=== PATIENT | female | born 1935 | race Caucasian/White ===

== ENCOUNTER 2018-08-22 15:39 | Observation (INO) | payer MEDICARE, BC ==
[2018-08-22] MEDS ORDERED: Sodium Chloride 0.9% 10 ML Syringe FLUSH PRN (15:41)
--- NOTE | 2018-08-22 15:42 | EDM.PDOC ---
ED HPI GENERAL MEDICAL PROBLEM - General Chief Complaint: Chest Pain Stated Complaint: SORE THROAT, RUNNY NOSE, HEADACHE, CHEST PAIN Time Seen by Provider: 08/22/18 15:41 Source of Information: Reports: Patient, Family History Limitations: Reports: No Limitations - History of Present Illness INITIAL COMMENTS - FREE TEXT/NARRATIVE: Sharmila is an 82 year old female who presents to the ED with c/o chest pain, headache, and elevated BP. Was initially in clinic and noted BP to be very elevated with patient in obvious distress from headache so was sent to ED. She reports that starting yesterday she developed a "bad headache" and chest pain. Rates headache 10/10 and chest pain 8/10. She denies any shortness of breath. Does report she feels dizzy. Reports she just hurts all over. Has not had much of an appetite the last few days. Just overall, doesn't feel well she reports. She reports she also has a sore mouth. She has been doctoring for a number of years for these mouth sores. Recently saw ENT. Patient does have dementia. Is oriented to person and place. Disoriented to time. No focal neurologic deficit. Onset Date: 08/21/18 Duration: Getting Worse Location: Reports: Head, Chest, Other (Mouth) Quality: Reports: Ache Severity: Severe Improves with: Reports: None Worsens with: Reports: None Associated Symptoms: Reports: Confusion, Chest Pain, Headaches, Loss of Appetite , Malaise. Denies: cough w sputum, Diaphoresis, Fever/Chills, Nausea/Vomiting, Rash, Seizure, Shortness of Breath, Syncope, Weakness HEADACHE Pain Score (Numeric/FACES): 6 CHEST Pain Score (Numeric/FACES): 6 Generalized Pain Score (Numeric/FACES): 8 - Related Data Allergies Allergy/AdvReac Type Severity Reaction Status Date / Time aspirin Allergy Mild Stomach Verified 08/22/18 16:28 Upset celecoxib [From Celebrex] Allergy Cannot Verified 08/22/18 16:28 Remember egg Allergy Stomach Verified 08/22/18 16:28 Upset egg Allergy Stomach Uncoded 08/22/18 16:28 Upset Home Meds: Home Meds LORazepam [Ativan] 0.5 mg PO BEDTIME PRN 05/01/13 [History] Multivitamin [Multivitamins] 1 each PO DAILY 05/01/13 [History] busPIRone HCl [Buspirone HCl] 15 mg PO BID 05/01/13 [History] cycloSPORINE [Restasis] 1 drop EYEBOTH BID 05/01/13 [History] Bimatoprost [Lumigan 0.01% Ophth Soln] 1 drop EYEBOTH BEDTIME 09/17/13 [History] Cyanocobalamin (Vitamin B12) [Vitamin B12] 1 ml IM Q1M 11/10/14 [History] Hydrocortisone 10 mg PO DAILY 11/18/15 [History] Potassium Chloride [Klor-Con 10] 20 meq PO BIDMEALS tab.er 11/20/15 [Rx] Brinzolamide [Azopt 1% Ophth Susp] 1 drop EYEBOTH BID 08/22/18 [History] Calcium Carbonate/Vitamin D3 [Calcium 500-Vit D3 600 Tablet] 1 tab PO DAILY [History] Fexofenadine HCl [Allergy Relief] 180 mg PO DAILY PRN 08/22/18 [History] Gabapentin [Neurontin] 100 mg PO TID 08/22/18 [History] Gabapentin [Neurontin] 300 mg PO TID 08/22/18 [History] Hydrocortisone [Cortef] 5 mg PO BEDTIME 08/22/18 [History] Ibuprofen [Advil] 400 mg PO Q6HR PRN 08/22/18 [History] oxyCODONE HCl/Acetaminophen [Oxycodone-Acetaminophen 5-325] 1 tab PO Q4HR PRN [History] C-Benadryl/Maalox/Vis Lido 5 ml PO QID PRN 08/23/18 [History] Past Medical History HEENT History: Reports: Cataract, Other (See Below) Other HEENT History: Had left eye surgery 1-2 months ago. Respiratory History: Reports: Asthma - Past Surgical History GI Surgical History: Reports: Appendectomy, Cholecystectomy, Other (See Below) Female Surgical History: Reports: Hysterectomy Musculoskeletal Surgical History: Reports: Other (See Below) Social & Family History - Family History Cardiac: Reports: ND Respiratory: Reports: Asthma Musculoskeletal: Reports: Osteoarthritis Oncologic: Reports: Ovarian ED ROS GENERAL - Review of Systems Review Of Systems: See Below Constitutional: Reports: Malaise, Weakness, Fatigue, Decreased Appetite. Denies : Fever, Chills HEENT: Reports: Rhinitis, Throat Pain. Denies: Throat Swelling Respiratory: Denies: Shortness of Breath, Wheezing, Pleuritic Chest Pain, Cough , Sputum, Hemoptysis Cardiovascular: Reports: Chest Pain, Blood Pressure Problem, Lightheadedness. Denies: Dyspnea on Exertion, Edema, Orthopnea, Palpitations, Syncope Endocrine: Reports: Fatigue GI/Abdominal: Reports: Decreased Appetite. Denies: Abdominal Pain, Black Stool , Bloody Stool, Constipation, Diarrhea, Nausea, Vomiting : Reports: Frequency, Urgency. Denies: Dysuria, Incontinence Musculoskeletal: Reports: Back Pain Neurological: Reports: Confusion, Dizziness, Headache, Weakness. Denies: Numbness, Seizure, Syncope, Tingling, Tremors Psychiatric: Reports: Anxiety Hematologic/Lymphatic: Reports: Anemia Immunologic: Reports: No Symptoms ED EXAM, GENERAL - Physical Exam Exam: See Below Exam Limited By: No Limitations General Appearance: Alert, WD/WN, Mild Distress Eye Exam: Bilateral Eye: EOMI, Normal Fundi, Normal Inspection, PERRL Ears: Normal External Exam, Normal Canal, Hearing Grossly Normal, Normal TMs Nose: Normal Inspection, Normal Mucosa, No Blood Throat/Mouth: Normal Lips, Normal Teeth, Other (sores in mouth) Head: Atraumatic, Normocephalic. No: Sinus Tenderness Neck: Normal Inspection, Supple, Non-Tender, Full Range of Motion Respiratory/Chest: No Respiratory Distress, Lungs Clear, Normal Breath Sounds, No Accessory Muscle Use, Chest Non-Tender Cardiovascular: Normal Peripheral Pulses, Regular Rate, Rhythm, No Edema, No Gallop, No JVD, No Rub, Systolic Murmur (grade III systollic) Peripheral Pulses: 2+: Dorsalis Pedis (L), Dorsalis Pedis (R) GI/Abdominal: Normal Bowel Sounds, Soft, Non-Tender, No Organomegaly, No Distention, No Abnormal Bruit, No Mass Back Exam: Normal Inspection, Full Range of Motion, NT Extremities: Normal Inspection, Normal Range of Motion, Non-Tender, Normal Capillary Refill, No Pedal Edema Neurological: Alert, Oriented, CN II-XII Intact, Normal Cognition, Normal Gait, Normal Reflexes, No Motor/Sensory Deficits Psychiatric: Anxious Skin Exam: Warm, Dry, Intact, Normal Color, No Rash Lymphatic: No Adenopathy Course - Vital Signs Last Recorded V/S: Last Vital Signs Temp 98.3 F 08/23/18 15:43 Pulse 58 L 08/23/18 15:43 Resp 12 08/23/18 15:43 BP 148/46 H 08/23/18 16:20 Pulse Ox 97 08/23/18 15:43 - Orders/Labs/Meds Orders: Active Orders 24 hr Category Date Time Status Chest 2V [CR] Stat Exams 08/22/18 15:41 Taken Head wo Cont [CT] Stat Exams 08/22/18 15:48 Taken Medication Orders Buspirone HCl (Buspar) 15 mg PO BID [facility] Last Admin: 08/23/18 10:58 Dose: Admin: 08/22/18 20:33 Dose: Enoxaparin Sodium (Lovenox) 30 mg SUBCUT Q24H [facility] Last Admin: 08/22/18 20:18 Dose: 30 mg Gabapentin (Neurontin) 100 mg PO TID [facility] Last Admin: 08/23/18 14:42 Dose: Admin: 08/23/18 11:07 Dose: Admin: 08/22/18 20:17 Dose: 100 mg Gabapentin (Neurontin) 300 mg PO TID [facility] Last Admin: 08/23/18 14:42 Dose: Admin: 08/23/18 11:07 Dose: Admin: 08/22/18 20:17 Dose: 300 mg Hydralazine HCl (Apresoline) 20 mg IVPUSH Q6H PRN PRN Reason: Hypertension Hydrocortisone (Cortef) 5 mg PO BEDTIME [facility] Last Admin: 08/22/18 20:16 Dose: 5 mg Hydrocortisone (Cortef) 10 mg PO DAILY [facility] Last Admin: 08/23/18 10:59 Dose: Hydromorphone HCl (Dilaudid) 0.5 mg IVPUSH Q2H PRN PRN Reason: Pain (severe 7-10) Sodium Chloride (Normal Saline) 250 mls @ 75 mls/hr IV ASDIRECTED [facility] Latanoprost (Xalatan 0.005% Oph Soln) 0 ml EYEBOTH BEDTIME [facility] Last Admin: 08/22/18 20:33 Dose: Not Given Lisinopril (Prinivil) 10 mg PO DAILY [facility] Last Admin: 08/23/18 14:50 Dose: 10 mg Admin: 08/22/18 20:14 Dose: 10 mg Lorazepam (Ativan) 0.5 mg PO BEDTIME PRN PRN Reason: Sleep Non-Formulary Medication (Cyclosporine [Restasis]) 1 drop EYEBOTH BID [facility] Non-Formulary Medication (Brinzolamide [Azopt 1% Ophth Susp]) 1 drop EYEBOTH BID [facility] Ondansetron HCl (Zofran) 4 mg IV Q6H PRN PRN Reason: Nausea/Vomiting Oxycodone/Acetaminophen (Percocet 325-5 Mg) 1 tab PO Q4H PRN PRN Reason: Pain (moderate 4-6) Last Admin: 08/23/18 15:48 Dose: 1 tab Admin: 08/23/18 08:04 Dose: 1 tab Admin: 08/22/18 20:17 Dose: 1 tab Pantoprazole Sodium (Protonix Iv) 40 mg IVPUSH Q24H [facility] Last Admin: 08/23/18 13:35 Dose: 40 mg Potassium Chloride (Klor-Con 10) 20 meq PO BIDMEALS [facility] Last Admin: 08/23/18 11:00 Dose: Potassium Chloride (Klor-Con 10) 40 meq PO ONETIME ONE Stop: 08/23/18 18:01 Temazepam (Restoril) 15 mg PO BEDTIME PRN PRN Reason: Sleep Labs: Laboratory Tests 08/22/18 08/22/18 08/22/18 Range/Units 15:41 15:41 15:41 WBC 8.8 (5.0-10.0) 10^3/uL RBC 3.93 L (4.00-5.50) 10^6/uL Hgb 8.5 L (12.0-16.0) g/dL Hct 28.0 L (37.0-47.0) % MCV 71.2 L (82.0-94.0) fL MCH 21.6 L (27.0-32.0) pg MCHC 30.4 L (33.0-38.0) g/dL RDW Coeff of Magui 17.8 H (11.0-15.0) % Plt Count 516 H (150-400) 10^3/uL Neut % (Auto) 81.0 (35-85) % Lymph % (Auto) 11.4 (10-55) % Ritchie % (Auto) 5.1 (0-16) % Eos % (Auto) 1.8 (0-5) % Baso % (Auto) 0.7 (0-3) % Neut # (Auto) 7.14 H (1.80-7.00) 10^3/uL Lymph # (Auto) 1.00 (1.00-4.80) 10^3/uL Ritchie # (Auto) 0.45 (0.00-0.80) 10^3/uL Eos # (Auto) 0.16 (0.00-0.45) 10^3/uL Baso # (Auto) 0.06 10^3/uL Sodium 140 (136-145) mEq/L Potassium 4.2 (3.5-5.0) mEq/L Chloride 101 (98-106) mEq/L Carbon Dioxide 30 (21-32) mmol/L BUN 17 (7-18) mg/dL Creatinine 0.7 (0.6-1.0) mg/dL Est Cr Clr Drug Dosing 40.62 mL/min Estimated GFR (MDRD) > 60 (>=60) mL/min Glucose 151 H (75-99) mg/dL Calcium 8.9 (8.4-10.1) mg/dL Total Bilirubin 0.1 (0.0-1.0) mg/dL AST 19 (15-37) U/L ALT 19 (12-78) U/L Alkaline Phosphatase 134 H (46-116) U/L Lactate Dehydrogenase 214 H (100-190) U/L Creatine Kinase 125 (21-215) U/L Troponin I < 0.017 (0.00-0.06) ng/mL C-Reactive Protein < 0.2 L (0.2-0.8) mg/dL Total Protein 6.2 L (6.4-8.2) g/dL Albumin 3.2 L (3.4-5.0) g/dL Urine Color Light yellow (YELLOW) Urine Appearance Clear (CLEAR) Urine pH 7.5 (4.5-8.0) Ur Specific Epsom 1.015 (1.003-1.020) Urine Protein Negative (NEGATIVE) mg/dL Urine Glucose (UA) Negative (NEGATIVE) mg/dL Urine Ketones Negative (NEGATIVE) mg/dL Urine Occult Blood Negative (NEGATIVE) Urine Nitrite Negative (NEGATIVE) Urine Bilirubin Negative (NEGATIVE) Urine Urobilinogen 0.2 (0.2-1.0) EU/dL Ur Leukocyte Esterase Negative (NEGATIVE) Meds: Medications Generic Name Dose Route Start Last Admin Trade Name Freq PRN Reason Stop Dose Admin Buspirone HCl 15 mg 08/22/18 20:00 08/23/18 10:58 Buspar PO Not Given BID [facility] Enoxaparin Sodium 30 mg 08/22/18 19:26 08/22/18 20:18 Lovenox SUBCUT 30 mg Q24H [facility] Administration Gabapentin 100 mg 08/22/18 20:00 08/23/18 14:42 Neurontin PO Not Given TID [facility] Gabapentin 300 mg 08/22/18 20:00 08/23/18 14:42 Neurontin PO Not Given TID [facility] Hydralazine HCl 20 mg 08/22/18 19:26 Apresoline IVPUSH Q6H PRN Hypertension Hydrocortisone 5 mg 08/22/18 20:00 08/22/18 20:16 Cortef PO 5 mg BEDTIME [facility] Administration Hydrocortisone 10 mg 08/23/18 08:00 08/23/18 10:59 Cortef PO Not Given DAILY [facility] Hydromorphone HCl 0.5 mg 08/22/18 19:26 Dilaudid IVPUSH Q2H PRN Pain (severe 7-10) Sodium Chloride 250 mls @ 75 mls/hr 08/23/18 09:00 Normal Saline IV ASDIRECTED [facility] Latanoprost 0 ml 08/22/18 20:00 08/22/18 20:33 Xalatan 0.005% Ophth Soln EYEBOTH Not Given BEDTIME [facility] Lisinopril 10 mg 08/22/18 19:26 08/23/18 14:50 Prinivil PO 10 mg DAILY [facility] Administration Lorazepam 0.5 mg 08/22/18 19:26 Ativan PO BEDTIME PRN Sleep Non-Formulary Medication 1 drop 08/22/18 20:00 Cyclosporine [Restasis] EYEBOTH BID [facility] Non-Formulary Medication 1 drop 08/22/18 20:00 Brinzolamide [Azopt 1% Ophth Susp] EYEBOTH BID [facility] Ondansetron HCl 4 mg 08/22/18 19:26 Zofran IV Q6H PRN Nausea/Vomiting Oxycodone/Acetaminophen 1 tab 08/22/18 19:26 08/23/18 15:48 Percocet 325-5 Mg PO 1 tab Q4H PRN Administration Pain (moderate 4-6) Pantoprazole Sodium 40 mg 08/23/18 11:30 08/23/18 13:35 Protonix Iv IVPUSH 40 mg Q24H [facility] Administration Potassium Chloride 20 meq 08/23/18 08:00 08/23/18 11:00 Klor-Con 10 PO Not Given BIDMEALS [facility] Potassium Chloride 40 meq 08/23/18 18:00 Klor-Con 10 PO 08/23/18 18:01 ONETIME ONE Temazepam 15 mg 08/22/18 19:26 Restoril PO BEDTIME PRN Sleep Discontinued Medications Generic Name Dose Route Start Last Admin Trade Name Freq PRN Reason Stop Dose Admin Clonidine HCl 0.1 mg 08/22/18 18:00 08/22/18 18:00 Catapres PO 0.1 mg STAT [facility] Administration Fentanyl 25 mcg 08/22/18 16:32 08/22/18 16:38 Sublimaze IVPUSH 08/22/18 16:33 25 mcg ONETIME ONE Administration Fentanyl 25 mcg 08/22/18 17:17 08/22/18 17:26 Sublimaze IVPUSH 08/22/18 17:18 25 mcg ONETIME ONE Administration Sodium Chloride Confirm 08/23/18 10:09 08/23/18 10:18 Normal Saline Administered 08/23/18 10:10 150 mls/hr Dose Administration 250 mls @ as directed .ROUTE .STK-MED ONE Ketorolac Tromethamine 30 mg 08/22/18 19:26 Toradol IM Q6H PRN Pain (moderate 4-6) Metoprolol Tartrate 2.5 mg 08/22/18 16:14 08/22/18 16:18 Lopressor IVPUSH 08/22/18 16:15 2.5 mg ONETIME ONE Administration Metoprolol Tartrate 2.5 mg 08/22/18 16:49 08/22/18 16:49 Lopressor IVPUSH 08/22/18 16:50 2.5 mg ONETIME ONE Administration Sodium Chloride 10 ml 08/22/18 15:41 Saline Flush FLUSH ASDIRECTED PRN Keep Vein Open - Re-Assessments/Exams Free Text/Narrative Re-Assessment/Exam: 08/22/18 16:50 Discussed lab, chest xray, and head CT results with patient and family. Will give additional 2.5 mg lopressor. Patient reports no relief from fentanyl as of yet. Will admit to observation for BP monitoring. Departure - Departure Time of Disposition: 18:13 Disposition: Refer to Observation Condition: Fair Clinical Impression: Hypertensive urgency, Atypical chest pain Headache Qualifiers: Headache type: unspecified Headache chronicity pattern: acute headache Anemia Qualifiers: Anemia type: iron deficiency Iron deficiency anemia type: other iron deficiency Qualified Code(s): D50.8 - Other iron deficiency anemias - Problem List & Annotations (1) Anemia SNOMED Code(s): 678118142 Code(s): D64.9 - ANEMIA, UNSPECIFIED Status: Acute Current Visit: Yes Qualifiers: Anemia type: iron deficiency Iron deficiency anemia type: other iron deficiency Qualified Code(s): D50.8 - Other iron deficiency anemias (2) Headache SNOMED Code(s): 33733746 Code(s): R51 - HEADACHE Status: Acute Current Visit: Yes Qualifiers: Headache type: unspecified Headache chronicity pattern: acute headache (3) Atypical chest pain SNOMED Code(s): 117307994 Code(s): R07.89 - OTHER CHEST PAIN Status: Acute Current Visit: No (4) Hypertensive urgency SNOMED Code(s): 078868374 Code(s): I16.0 - HYPERTENSIVE URGENCY Status: Acute Current Visit: No - Problem List Review Problem List Initiated/Reviewed/Updated: Yes - My Orders Last 24 Hours: My Active Orders 08/22/18 15:41 Chest 2V [CR] Stat 08/22/18 15:48 Head wo Cont [CT] Stat - Assessment/Plan Admission H&P: Please use this note as an admission H&P Last 24 Hours: My Active Orders 08/22/18 15:41 Chest 2V [CR] Stat 08/22/18 15:48 Head wo Cont [CT] Stat Plan: Admit to observation BP did improve after total 5 mg Lopressor, 0.1 mg clonidine and 20 mg lisinopril. Will start daily lisinopril. Cardiac monitoring Hgb 8.5 Recheck labs in am Patient does have chronic pain. Will restart home pain meds. Anticipate discharge in am if BP remains normotensive and hemoglobin stable.
[2018-08-22] MEDS ORDERED: Metoprolol Tartrate 5 MG/5 ML SDV IVPUSH ONE ×2 (16:14→16:49)
[2018-08-22 16:17] LABS: CHLORIDE,CL 101 mEq/L (98-106); SODIUM,NA 140 mEq/L (136-145)
[2018-08-22] MEDS ORDERED: fentaNYL 100 MCG/2 ML SDV IVPUSH ONE ×2 (16:32→17:17)
[2018-08-22] MEDS ORDERED: cloNIDine 0.1 MG Tab PO SCH (18:00)
[2018-08-22] MEDS ORDERED: Temazepam 15 MG Cap PO PRN (19:26)
[2018-08-22] MEDS ORDERED: Ketorolac 30 MG/ML SDV IM PRN (19:26)
[2018-08-22] MEDS ORDERED: LORazepam 0.5 MG Tab PO PRN (19:26)
[2018-08-22] MEDS ORDERED: hydrALAZINE 20 MG/ML SDV IVPUSH PRN (19:26)
[2018-08-22] MEDS ORDERED: Ondansetron 4 MG/2 ML SDV IV PRN (19:26)
[2018-08-22] MEDS ORDERED: HYDROmorphone 1 MG/ML Syringe IVPUSH PRN (19:26)
[2018-08-22] MEDS ORDERED: Latanoprost 0.005% Ophth Soln 2.5 ML Bottle EYEBOTH SCH (20:00)
[2018-08-22] MEDS: Lisinopril 10 MG Tab PO SCH (20:14)
[2018-08-22] MEDS: Hydrocortisone 20 MG Tab PO SCH (20:16)
[2018-08-22] MEDS: Gabapentin 300 MG Cap PO SCH (20:17)
[2018-08-22] MEDS: Gabapentin 100 MG Cap PO SCH (20:17)
[2018-08-22] MEDS: Acetaminophen/oxyCODONE 325-5 MG Tab PO PRN (20:17)
[2018-08-22] MEDS: Enoxaparin 30 MG/0.3 ML Syringe SUBCUT SCH (20:18)
[2018-08-22] MEDS: busPIRone 5 MG Tab PO SCH (20:33)
[2018-08-23 07:43] LABS: CHLORIDE,CL 104 mEq/L (98-106); SODIUM,NA 141 mEq/L (136-145)
[2018-08-23] MEDS ORDERED: Potassium Chloride 10 MEQ Tab.ER PO SCH (08:00)
[2018-08-23] MEDS: Acetaminophen/oxyCODONE 325-5 MG Tab PO PRN ×2 (08:04→15:48)
[2018-08-23] MEDS ORDERED: Sodium Chloride 0.9% 250 ML IV SCH (09:00)
--- NOTE | 2018-08-23 09:28 | PCM.PN ---
- General Info Date of Service: 08/23/18 Admission Dx/Problem (Free Text): Hypertensive Urgency Atypical chest pain Headache Anemia Subjective Update: Sharmila is an 82 year old female who was admitted to the hospital from the ED yesterday for atypical chest pain, hypertensive urgency, headache, and anemia. She reports she has been feeling better. Does continue to have generalized c/o pain, which is baseline for patient. She does have chronic pain. Her BP has been normotensive overnight. Does continue to feel fatigued. Reports her headache has resolved. Hgb this morning dropped from 8.5 to 7.5. Labs otherwise stable. Functional Status: Reports: Pain Controlled, Tolerating Diet, Ambulating, Urinating - Review of Systems General: Denies: Fever, Weakness, Fatigue, Chills HEENT: Reports: Other (mouth sores) Pulmonary: Denies: Shortness of Breath, Pleuritic Chest Pain, Cough, Sputum, Hemoptysis, Wheezing Cardiovascular: Denies: Chest Pain, Palpitations, Dyspnea on Exertion, Orthopnea , Edema, Lightheadedness Gastrointestinal: Denies: Abdominal Pain, Decreased Appetite, Diarrhea, Hematochezia, Melena, Nausea, Vomiting Genitourinary: Reports: Frequency, Urgency. Denies: Dysuria Musculoskeletal: Reports: Back Pain Skin: Reports: No Symptoms Neurological: Reports: Confusion. Denies: Dizziness, Headache, Numbness, Tingling, Weakness Psychiatric: Reports: No Symptoms - Patient Data Vitals - Most Recent: Last Vital Signs Temp 96.5 F 08/23/18 08:00 Pulse 60 08/23/18 08:00 Resp 16 08/23/18 08:00 BP 128/46 L 08/23/18 08:00 Pulse Ox 100 08/23/18 08:00 Weight - Most Recent: 91 lb 11.2 oz Lab Results Last 24 Hours: Laboratory Results - last 24 hr 08/22/18 08/22/18 08/22/18 Range/Units 15:41 15:41 15:41 WBC 8.8 (5.0-10.0) 10^3/uL RBC 3.93 L (4.00-5.50) 10^6/uL Hgb 8.5 L (12.0-16.0) g/dL Hct 28.0 L (37.0-47.0) % MCV 71.2 L (82.0-94.0) fL MCH 21.6 L (27.0-32.0) pg MCHC 30.4 L (33.0-38.0) g/dL RDW Coeff of Magui 17.8 H (11.0-15.0) % Plt Count 516 H (150-400) 10^3/uL Neut % (Auto) 81.0 (35-85) % Lymph % (Auto) 11.4 (10-55) % [place] % (Auto) 5.1 (0-16) % Eos % (Auto) 1.8 (0-5) % Baso % (Auto) 0.7 (0-3) % Neut # (Auto) 7.14 H (1.80-7.00) 10^3/uL Lymph # (Auto) 1.00 (1.00-4.80) 10^3/uL [place] # (Auto) 0.45 (0.00-0.80) 10^3/uL Eos # (Auto) 0.16 (0.00-0.45) 10^3/uL Baso # (Auto) 0.06 10^3/uL Sodium 140 (136-145) mEq/L Potassium 4.2 (3.5-5.0) mEq/L Chloride 101 (98-106) mEq/L Carbon Dioxide 30 (21-32) mmol/L BUN 17 (7-18) mg/dL Creatinine 0.7 (0.6-1.0) mg/dL Est Cr Clr Drug Dosing 40.62 mL/min Estimated GFR (MDRD) > 60 (>=60) mL/min Glucose 151 H (75-99) mg/dL Calcium 8.9 (8.4-10.1) mg/dL Total Bilirubin 0.1 (0.0-1.0) mg/dL AST 19 (15-37) U/L ALT 19 (12-78) U/L Alkaline Phosphatase 134 H (46-116) U/L Lactate Dehydrogenase 214 H (100-190) U/L Creatine Kinase 125 (21-215) U/L Troponin I < 0.017 (0.00-0.06) ng/mL C-Reactive Protein < 0.2 L (0.2-0.8) mg/dL Total Protein 6.2 L (6.4-8.2) g/dL Albumin 3.2 L (3.4-5.0) g/dL Urine Color Light yellow (YELLOW) Urine Appearance Clear (CLEAR) Urine pH 7.5 (4.5-8.0) Ur Specific [place] 1.015 (1.003-1.020) Urine Protein Negative (NEGATIVE) mg/dL Urine Glucose (UA) Negative (NEGATIVE) mg/dL Urine Ketones Negative (NEGATIVE) mg/dL Urine Occult Blood Negative (NEGATIVE) Urine Nitrite Negative (NEGATIVE) Urine Bilirubin Negative (NEGATIVE) Urine Urobilinogen 0.2 (0.2-1.0) EU/dL Ur Leukocyte Esterase Negative (NEGATIVE) 08/23/18 08/23/18 Range/Units 07:32 07:32 WBC 7.3 (5.0-10.0) 10^3/uL RBC 3.51 L (4.00-5.50) 10^6/uL Hgb 7.5 L* (12.0-16.0) g/dL Hct 25.1 L (37.0-47.0) % MCV 71.5 L (82.0-94.0) fL MCH 21.4 L (27.0-32.0) pg MCHC 29.9 L (33.0-38.0) g/dL RDW Coeff of Magui 17.7 H (11.0-15.0) % Plt Count 459 H (150-400) 10^3/uL Neut % (Auto) 57.3 (35-85) % Lymph % (Auto) 22.4 (10-55) % [place] % (Auto) 16.1 H (0-16) % Eos % (Auto) 3.1 (0-5) % Baso % (Auto) 1.1 (0-3) % Neut # (Auto) 4.18 (1.80-7.00) 10^3/uL Lymph # (Auto) 1.64 (1.00-4.80) 10^3/uL [place] # (Auto) 1.18 H (0.00-0.80) 10^3/uL Eos # (Auto) 0.23 (0.00-0.45) 10^3/uL Baso # (Auto) 0.08 10^3/uL Sodium 141 (136-145) mEq/L Potassium 3.4 L (3.5-5.0) mEq/L Chloride 104 (98-106) mEq/L Carbon Dioxide 28 (21-32) mmol/L BUN 18 (7-18) mg/dL Creatinine 0.6 (0.6-1.0) mg/dL Est Cr Clr Drug Dosing 48.29 mL/min Estimated GFR (MDRD) > 60 (>=60) mL/min Glucose 98 D (75-99) mg/dL Calcium 8.1 L (8.4-10.1) mg/dL Total Bilirubin (0.0-1.0) mg/dL AST (15-37) U/L ALT (12-78) U/L Alkaline Phosphatase (46-116) U/L Lactate Dehydrogenase (100-190) U/L Creatine Kinase (21-215) U/L Troponin I < 0.017 (0.00-0.06) ng/mL C-Reactive Protein (0.2-0.8) mg/dL Total Protein (6.4-8.2) g/dL Albumin (3.4-5.0) g/dL Urine Color (YELLOW) Urine Appearance (CLEAR) Urine pH (4.5-8.0) Ur Specific [place] (1.003-1.020) Urine Protein (NEGATIVE) mg/dL Urine Glucose (UA) (NEGATIVE) mg/dL Urine Ketones (NEGATIVE) mg/dL Urine Occult Blood (NEGATIVE) Urine Nitrite (NEGATIVE) Urine Bilirubin (NEGATIVE) Urine Urobilinogen (0.2-1.0) EU/dL Ur Leukocyte Esterase (NEGATIVE) Med Orders - Current: Current Medications Buspirone HCl (Buspar) 15 mg PO BID [facility] Last Admin: 08/22/18 20:33 Dose: Not Given Enoxaparin Sodium (Lovenox) 30 mg SUBCUT Q24H [facility] Last Admin: 08/22/18 20:18 Dose: 30 mg Gabapentin (Neurontin) 100 mg PO TID [facility] Last Admin: 08/22/18 20:17 Dose: 100 mg Gabapentin (Neurontin) 300 mg PO TID [facility] Last Admin: 08/22/18 20:17 Dose: 300 mg Hydralazine HCl (Apresoline) 20 mg IVPUSH Q6H PRN PRN Reason: Hypertension Hydrocortisone (Cortef) 5 mg PO BEDTIME [facility] Last Admin: 08/22/18 20:16 Dose: 5 mg Hydrocortisone (Cortef) 10 mg PO DAILY [facility] Hydromorphone HCl (Dilaudid) 0.5 mg IVPUSH Q2H PRN PRN Reason: Pain (severe 7-10) Sodium Chloride (Normal Saline) 250 mls @ 75 mls/hr IV ASDIRECTED [facility] Latanoprost (Xalatan 0.005% Ophth Soln) 0 ml EYEBOTH BEDTIME [facility] Last Admin: 08/22/18 20:33 Dose: Not Given Lisinopril (Prinivil) 10 mg PO DAILY [facility] Last Admin: 08/22/18 20:14 Dose: 10 mg Lorazepam (Ativan) 0.5 mg PO BEDTIME PRN PRN Reason: Sleep Non-Formulary Medication (Cyclosporine [Restasis]) 1 drop EYEBOTH BID [facility] Non-Formulary Medication (Brinzolamide [Azopt 1% Ophth Susp]) 1 drop EYEBOTH BID [facility] Ondansetron HCl (Zofran) 4 mg IV Q6H PRN PRN Reason: Nausea/Vomiting Oxycodone/Acetaminophen (Percocet 325-5 Mg) 1 tab PO Q4H PRN PRN Reason: Pain (moderate 4-6) Last Admin: 08/23/18 08:04 Dose: 1 tab Potassium Chloride (Klor-Con 10) 20 meq PO BIDMEALS [facility] Temazepam (Restoril) 15 mg PO BEDTIME PRN PRN Reason: Sleep Discontinued Medications Clonidine HCl (Catapres) 0.1 mg PO STAT [facility] Last Admin: 08/22/18 18:00 Dose: 0.1 mg Fentanyl (Sublimaze) 25 mcg IVPUSH ONETIME ONE Stop: 08/22/18 16:33 Last Admin: 08/22/18 16:38 Dose: 25 mcg Fentanyl (Sublimaze) 25 mcg IVPUSH ONETIME ONE Stop: 08/22/18 17:18 Last Admin: 08/22/18 17:26 Dose: 25 mcg Ketorolac Tromethamine (Toradol) 30 mg IM Q6H PRN PRN Reason: Pain (moderate 4-6) Metoprolol Tartrate (Lopressor) 2.5 mg IVPUSH ONETIME ONE Stop: 08/22/18 16:15 Last Admin: 03/29/19 16:18 Dose: 2.5 mg Metoprolol Tartrate (Lopressor) 2.5 mg IVPUSH ONETIME ONE Stop: 08/22/18 16:50 Last Admin: 08/22/18 16:49 Dose: 2.5 mg Sodium Chloride (Saline Flush) 10 ml FLUSH ASDIRECTED PRN PRN Reason: Keep Vein Open - Exam Quality Assessment: DVT Prophylaxis General: Alert, Oriented (to self), No Acute Distress HEENT: Pupils Equal, Pupils Reactive, EOMI, Mucous Membr. Moist/[place] Neck: Supple Lungs: Clear to Auscultation, Normal Respiratory Effort Cardiovascular: Regular Rate, Regular Rhythm, Murmurs (grade II systollic) GI/Abdominal Exam: Normal Bowel Sounds, Soft, Non-Tender, No Organomegaly, No Distention, No Abnormal Bruit, No Mass, Pelvis Stable Back Exam: Normal Inspection, Full Range of Motion. No: CVA Tenderness (L), CVA Tenderness (R) Extremities: Normal Inspection, Normal Range of Motion, Non-Tender, No Pedal Edema, Normal Capillary Refill Skin: Warm, Dry, Intact Neurological: No New Focal Deficit Psy/Mental Status: Alert, Normal Affect, Normal Mood - Problem List & Annotations (1) Hypertensive urgency SNOMED Code(s): 529456933 Code(s): I16.0 - HYPERTENSIVE URGENCY Status: Acute Current Visit: No (2) Anemia SNOMED Code(s): 877569535 Code(s): D64.9 - ANEMIA, UNSPECIFIED Status: Acute Current Visit: Yes Qualifiers: Anemia type: iron deficiency Iron deficiency anemia type: other iron deficiency Qualified Code(s): D50.8 - Other iron deficiency anemias (3) Headache SNOMED Code(s): 35496298 Code(s): R51 - HEADACHE Status: Acute Current Visit: Yes Qualifiers: Headache type: unspecified Headache chronicity pattern: acute headache (4) Atypical chest pain SNOMED Code(s): 254567598 Code(s): R07.89 - OTHER CHEST PAIN Status: Acute Current Visit: No - Problem List Review Problem List Initiated/Reviewed/Updated: Yes - My Orders Last 24 Hours: My Active Orders 08/22/18 15:41 Chest 2V [CR] Stat 08/22/18 15:48 Head wo Cont [CT] Stat 08/22/18 18:46 Resuscitation Status Routine 08/22/18 19:26 Patient Status [ADT] Routine Cardiac Monitoring [RC] 0800,1999 Oxygen Therapy [RC] .PRN Pulse Oximetry [RC] .PRN Up With Assistance [RC] .PRN Vital Signs [RC] 0000,0400,0800,1200,1600,2000 Acetaminophen/oxyCODONE [Percocet 325-5 MG] 1 tab PO Q4H PRN Enoxaparin [Lovenox] 30 mg SUBCUT Q24H HYDROmorphone [Dilaudid] 0.5 mg IVPUSH Q2H PRN LORazepam [Ativan] 0.5 mg PO BEDTIME PRN Lisinopril [Prinivil] 10 mg PO DAILY Ondansetron [Zofran] 4 mg IV Q6H PRN Temazepam [Restoril] 15 mg PO BEDTIME PRN hydrALAZINE [Apresoline] 20 mg IVPUSH Q6H PRN 08/22/18 20:00 Brinzolamide [Azopt 1% Ophth Susp] 1 drop EYEBOTH BID Gabapentin [Neurontin] 100 mg PO TID Gabapentin [Neurontin] 300 mg PO TID Hydrocortisone [Cortef] 5 mg PO BEDTIME Latanoprost [Xalatan 0.005% Ophth Soln] 0 ml EYEBOTH BEDTIME busPIRone [Buspar] 15 mg PO BID cycloSPORINE [Restasis] 1 drop EYEBOTH BID 08/23/18 08:00 Hydrocortisone [Cortef] 10 mg PO DAILY Potassium Chloride [Klor-Con 10] 20 meq PO BIDMEALS 08/23/18 08:07 OCCULT BLOOD SCREEN [OP] Routine 08/23/18 08:15 IRON PNL (FE, TIBC, WARD, %SAT) [REF] Urgent 08/23/18 08:59 Verify Patient Consent Obtain [RC] ASDIRECTED TYPE AND SCREEN [BBK] Routine Transfuse PRBC [Transfuse Red Blood Cells] [COMM] Routine Transfuse Red Blood Cells [COMM] Routine 08/23/18 09:00 Sodium Chloride 0.9% [Normal Saline] 250 ml IV ASDIRECTED - Plan Plan:: Hgb dropped from 8.5 to 7.5. Has been trending down over past few months. Collect fecal occult screen. Start Protonix IV daily. Will transfuse 2 units as patient is symptomatic. She has c/o fatigue and generalized malaise. Labs otherwise stable. Will give 40 meq K supplement due to K 3.4. BP has been normotensive. Pain well controlled with Percocet. Recommend patient get up to chair and ambulate. Did discuss drop in hemoglobin with Dr. Puckett. Will plan to prep for EGD Saturday morning if patient and family agreeable. Recheck labs in am. Discharge inappropriate due to continued need for monitoring labs and possible EGD.
[2018-08-23] MEDS ORDERED: Sodium Chloride 0.9% 250 ML ONE (10:09)
[2018-08-23] MEDS: Lisinopril 10 MG Tab PO SCH ×2 (10:17→14:50)
[2018-08-23] MEDS: busPIRone 5 MG Tab PO SCH ×2 (10:58→20:13)
[2018-08-23] MEDS: Hydrocortisone 20 MG Tab PO SCH ×2 (10:59→20:14)
[2018-08-23] MEDS: Gabapentin 300 MG Cap PO SCH ×3 (11:07→20:14)
[2018-08-23] MEDS: Gabapentin 100 MG Cap PO SCH ×3 (11:07→20:14)
[2018-08-23] MEDS: Pantoprazole 40 MG Vial IVPUSH SCH (13:35)
[2018-08-23] MEDS ORDERED: Calcium Carbonate 500 MG Tab.Chew PO PRN (17:37)
[2018-08-23] MEDS ORDERED: Potassium Chloride 10 MEQ Tab.ER PO ONE (18:00)
[2018-08-23] MEDS ORDERED: LUMIGAN EYEBOTH SCH (20:00)
[2018-08-23] MEDS: Enoxaparin 30 MG/0.3 ML Syringe SUBCUT SCH (20:09)
[2018-08-23] MEDS: BRINZOLAMIDE EYEBOTH SCH (20:13)
[2018-08-23] MEDS: CYCLOSPORINE EYEBOTH SCH (20:14)
[2018-08-24] MEDS: Acetaminophen/oxyCODONE 325-5 MG Tab PO PRN ×2 (04:53→11:02)
[2018-08-24 06:30] LABS: CHLORIDE,CL 104 mEq/L (98-106); SODIUM,NA 139 mEq/L (136-145)
[2018-08-24] MEDS: Lisinopril 10 MG Tab PO SCH (07:39)
[2018-08-24] MEDS: BRINZOLAMIDE EYEBOTH SCH (08:24)
[2018-08-24] MEDS ORDERED: Oxyquinoline/Emollient 0.3% Oint 1 OZ Canister TOP PRN (09:04)
[2018-08-24] MEDS: busPIRone 5 MG Tab PO SCH (09:11)
[2018-08-24] MEDS: CYCLOSPORINE EYEBOTH SCH (09:12)
[2018-08-24] MEDS: Gabapentin 100 MG Cap PO SCH (09:12)
[2018-08-24] MEDS: Gabapentin 300 MG Cap PO SCH (09:12)
[2018-08-24] MEDS: Hydrocortisone 20 MG Tab PO SCH (09:12)
[2018-08-24] MEDS ORDERED: amLODIPine 2.5 MG Tab PO SCH (10:00)
[2018-08-24] MEDS ORDERED: amLODIPine 2.5 MG Tab PO ONE (11:08)
--- NOTE | 2018-08-24 12:10 | PCM.DCSUM1 ---
Discharge Summary - Hospital Course Diagnosis: Stroke: No - Discharge Data Discharge Date: 08/24/18 Discharge Disposition: Home, W Home Health Agency 06 Condition: Good - Discharge Diagnosis/Problem(s) (1) Hypertensive urgency SNOMED Code(s): 957819792 ICD Code: I16.0 - HYPERTENSIVE URGENCY Status: Acute (2) Anemia SNOMED Code(s): 467005487 ICD Code: D64.9 - ANEMIA, UNSPECIFIED Status: Acute Qualifiers: Anemia type: iron deficiency Iron deficiency anemia type: other iron deficiency Qualified Code(s): D50.8 - Other iron deficiency anemias (3) Headache SNOMED Code(s): 45701658 ICD Code: R51 - HEADACHE Status: Acute Qualifiers: Headache type: unspecified Headache chronicity pattern: acute headache (4) Atypical chest pain SNOMED Code(s): 367592156 ICD Code: R07.89 - OTHER CHEST PAIN Status: Acute - Patient Summary/Data Hospital Course: Sharmila is an 82 year old female who was admitted to the hospital from the ED on 08/22/2017 for hypertensive urgency, anemia, atypical chest pain, and headache. BP on arrival to ED was 200s/100s. Was given total of 5 mg Lopressor, 0.1 mg clonidine, and 10 mg lisinopril. BP eventually did improve. Hospital day 1, BP was well controlled. Last evening patient's BP increased once again to 190s/ 100s. Opted to increase lisinopril to 20 mg daily and add 5 mg amlodipine. VSS at time of discharge. Telemetry was NSR throughout stay. Patient has chronic anemia. Hgb did drop from 8.5 on admit to 7.5. Patient was transfused 2 units PRBCs. Hgb improved to 12.1 following transfusion. Iron panel was drawn and is pending at time of discharge. Patient advised to increase ferrous sulfate to 325 mg BID with meals. Patient was started on Protonix. Fecal occult screen was collected and negative. Labs otherwise stable. On day of discharge, patient reports she was feeling well and was adamant about going home. She denies any pain at time of discharge. Did discuss that BP remained mildly elevated. Recommended she monitor this at home and follow up with Dr. Puckett this week for BP check. Discussion had with son, , and regarding patient's safety at home and concern that she is not correctly taking her medications. Nursing staff also has concerns as patient confused at times and not sleeping well. They report she is up to the bathroom every 0.5-1 hour. Son reports that patient's has to assist her to the bathroom frequently throughout the night as he is worried she'll fall. Son does report that this has been an issue and there are multiple family dynamics. Patient is confused. Recommended discharge home with home health. Discussed with patient and spouse that they can assist in medication management and ensure safe home environment. Patient and agreeable to home health services. Patient will be discharged home with home health services. Nursing services necessary to assist with medication management given patients multiple comorbidities and medications. PT/OT for evaluation of safe home environment and fall assessment. Patient is a high fall risk. Dr. Puckett to follow home health plan of care. She will be discharged home on 20 mg lisinopril daily, 5 mg Norvasc daily, 40 mg Protonix daily, and increase ferrous sulfate to 325 mg BID rather than daily. Patient is also advised to follow up with Dr. Puckett this week for recheck BP and medication management. Will repeat labs at that time. Patient discharge from facility in satisfactory condition to care of spouse. - Patient Instructions Diet: Usual Diet as Tolerated Activity: As Tolerated Notify Provider of: Fever, Increased Pain, Nausea and/or Vomiting - Discharge Plan *PRESCRIPTION DRUG MONITORING PROGRAM REVIEWED*: Not Applicable *COPY OF PRESCRIPTION DRUG MONITORING REPORT IN PATIENT KLARISSA: Not Applicable Prescriptions/Med Rec: amLODIPine [Norvasc] 5 mg PO DAILY #30 tab Lisinopril [Prinivil] 20 mg PO DAILY #30 tab Pantoprazole Sodium [Protonix] 40 mg PO DAILY #30 tablet. Home Medications: Home Meds LORazepam [Ativan] 0.5 mg PO BEDTIME PRN 05/01/13 [History] Multivitamin [Multivitamins] 1 each PO DAILY 05/01/13 [History] busPIRone HCl [Buspirone HCl] 15 mg PO BID 05/01/13 [History] cycloSPORINE [Restasis] 1 drop EYEBOTH BID 05/01/13 [History] Bimatoprost [Lumigan 0.01% Ophth Soln] 1 drop EYEBOTH BEDTIME 09/17/13 [History] Cyanocobalamin (Vitamin B12) [Vitamin B12] 1 ml IM Q30D 11/10/14 [History] Hydrocortisone 10 mg PO DAILY 11/18/15 [History] Potassium Chloride [Klor-Con 10] 20 meq PO BIDMEALS tab.er 11/20/15 [Rx] Brinzolamide [Azopt 1% Ophth Susp] 1 drop EYEBOTH BID 08/22/18 [History] Calcium Carbonate/Vitamin D3 [Calcium 500-Vit D3 600 Tablet] 1 tab PO DAILY [History] Fexofenadine HCl [Allergy Relief] 180 mg PO DAILY PRN 08/22/18 [History] Gabapentin [Neurontin] 100 mg PO TID 08/22/18 [History] Gabapentin [Neurontin] 300 mg PO TID 08/22/18 [History] Hydrocortisone [Cortef] 5 mg PO BEDTIME 08/22/18 [History] Ibuprofen [Advil] 400 mg PO Q6HR PRN 08/22/18 [History] oxyCODONE HCl/Acetaminophen [Oxycodone-Acetaminophen 5-325] 1 tab PO Q4HR PRN [History] C-Benadryl/Maalox/Vis Lido 5 ml PO QID PRN 08/23/18 [History] Lisinopril [Prinivil] 20 mg PO DAILY #30 tab 08/24/18 [Rx] Pantoprazole Sodium [Protonix] 40 mg PO DAILY #30 tablet. 08/24/18 [Rx] amLODIPine [Norvasc] 5 mg PO DAILY #30 tab 08/24/18 [Rx] Patient Handouts: Hypertension Forms: ED Department Discharge Referrals: Grant Puckett MD [Primary Care Provider] - - Discharge Summary/Plan Comment DC Time >30 min.: Yes (45 spent in care and coordination of d/c, > 50% face to face) - General Info Date of Service: 08/24/18 Admission Dx/Problem (Free Text: Hypertensive Urgency Atypical chest pain Headache Anemia Subjective Update: Patient reports she is feeling well this morning and just wishes to go home. She denies any pain, however does report slight headache. She reports she has been up ambulating. Has been tolerating general diet. Did have bout of diarrhea this morning. She reports this was after eating apple turnover, as she doesn't tolerate sweets well. Otherwise has no complaints. Does feel overall better after blood transfusion. Feels like she has more energy. BP elevated since last evening. Functional Status: Reports: Pain Controlled, Tolerating Diet, Ambulating, Urinating. Denies: New Symptoms - Review of Systems General: Denies: Fever, Weakness, Fatigue, Chills Pulmonary: Denies: Shortness of Breath, Cough, Sputum Cardiovascular: Denies: Chest Pain, Dyspnea on Exertion, Edema, Lightheadedness Gastrointestinal: Reports: Diarrhea. Denies: Abdominal Pain, Constipation, Decreased Appetite, Hematochezia, Melena, Nausea, Vomiting Genitourinary: Reports: Frequency Musculoskeletal: Reports: No Symptoms Skin: Reports: No Symptoms Neurological: Reports: Confusion. Denies: Dizziness, Headache, Numbness, Tingling, Difficulty Walking, Weakness Psychiatric: Reports: No Symptoms - Patient Data Vitals - Most Recent: Last Vital Signs Temp 97.4 F 08/24/18 08:00 Pulse 60 08/24/18 08:00 Resp 12 08/24/18 08:00 BP 173/63 H 08/24/18 11:16 Pulse Ox 99 08/24/18 08:00 Weight - Most Recent: 91 lb 11.2 oz I&O - Last 24 hours: Intake & Output 08/23/18 08/24/18 08/24/18 22:59 06:59 14:59 Intake Total 350 Balance 350 Lab Results - Last 24 hrs: Laboratory Results - last 24 hr 08/23/18 08/24/18 08/24/18 Range/Units 07:30 06:10 06:10 WBC 9.8 (5.0-10.0) 10^3/uL RBC 5.04 (4.00-5.50) 10^6/uL Hgb 12.1 (12.0-16.0) g/dL Hct 37.1 (37.0-47.0) % MCV 73.6 L (82.0-94.0) fL MCH 24.0 L (27.0-32.0) pg MCHC 32.6 L (33.0-38.0) g/dL RDW Coeff of Magui 19.2 H (11.0-15.0) % Plt Count 413 H (150-400) 10^3/uL Neut % (Auto) 59.8 (35-85) % Lymph % (Auto) 17.1 (10-55) % [place] % (Auto) 16.9 H (0-16) % Eos % (Auto) 5.3 H (0-5) % Baso % (Auto) 0.9 (0-3) % Neut # (Auto) 5.85 (1.80-7.00) 10^3/uL Lymph # (Auto) 1.68 (1.00-4.80) 10^3/uL [place] # (Auto) 1.66 H (0.00-0.80) 10^3/uL Eos # (Auto) 0.52 H (0.00-0.45) 10^3/uL Baso # (Auto) 0.09 10^3/uL Sodium 139 (136-145) mEq/L Potassium 3.8 (3.5-5.0) mEq/L Chloride 104 (98-106) mEq/L Carbon Dioxide 28 (21-32) mmol/L BUN 15 (7-18) mg/dL Creatinine 0.7 (0.6-1.0) mg/dL Est Cr Clr Drug Dosing 41.39 mL/min Estimated GFR (MDRD) > 60 (>=60) mL/min Glucose 103 H (75-99) mg/dL Calcium 8.9 (8.4-10.1) mg/dL Blood Type A POSITIVE Gel Antibody Screen Negative Crossmatch See Detail JASMIN Results - Last 24 hrs: Microbiology 08/23/18 08:07 Occult Blood - Preliminary Stool / Feces Med Orders - Current: Current Medications Amlodipine Besylate (Norvasc) 2.5 mg PO DAILY [facility] Last Admin: 08/24/18 09:58 Dose: 2.5 mg Buspirone HCl (Buspar) 15 mg PO BID [facility] Last Admin: 08/24/18 09:11 Dose: Not Given Calcium Carbonate/Glycine (Tums) 500 mg PO QID PRN PRN Reason: Dyspepsia Last Admin: 08/23/18 18:12 Dose: 500 mg Gabapentin (Neurontin) 100 mg PO TID [facility] Last Admin: 08/24/18 09:12 Dose: Not Given Gabapentin (Neurontin) 300 mg PO TID [facility] Last Admin: 08/24/18 09:12 Dose: Not Given Hydralazine HCl (Apresoline) 20 mg IVPUSH Q6H PRN PRN Reason: Hypertension Hydrocortisone (Cortef) 5 mg PO BEDTIME [facility] Last Admin: 08/23/18 20:14 Dose: Not Given Hydrocortisone (Cortef) 10 mg PO DAILY [facility] Last Admin: 08/24/18 09:12 Dose: Not Given Hydromorphone HCl (Dilaudid) 0.5 mg IVPUSH Q2H PRN PRN Reason: Pain (severe 7-10) Sodium Chloride (Normal Saline) 250 mls @ 75 mls/hr IV ASDIRECTED [facility] Lisinopril (Prinivil) 10 mg PO DAILY [facility] Last Admin: 08/24/18 07:39 Dose: 10 mg Lorazepam (Ativan) 0.5 mg PO BEDTIME PRN PRN Reason: Sleep Last Admin: 08/24/18 00:05 Dose: 0.5 mg Patients Own Med ( Cyclosporine [ Restasis] 1 Drop) 1 drop EYEBOTH BID [facility] Last Admin: 08/24/18 09:12 Dose: Not Given Patients Own Med( Brinzolamide [Azopt 1% Ophth Susp] 1 Drop) 1 drop EYEBOTH BID [facility] Last Admin: 08/24/18 08:24 Dose: 1 drop Patients Own Med (Lumigan) 0 each EYEBOTH BEDTIME [facility] Last Admin: 08/23/18 20:14 Dose: 1 each Ondansetron HCl (Zofran) 4 mg IV Q6H PRN PRN Reason: Nausea/Vomiting Oxycodone/Acetaminophen (Percocet 325-5 Mg) 1 tab PO Q4H PRN PRN Reason: Pain (moderate 4-6) Last Admin: 08/24/18 11:02 Dose: 1 tab Oxyquinoline Sulfate ([place] Oint) 0 oz TOP ASDIRECTED PRN PRN Reason: skin irritation Last Admin: 08/24/18 09:10 Dose: 1 applic Pantoprazole Sodium (Protonix Iv) 40 mg IVPUSH Q24H [facility] Last Admin: 08/23/18 13:35 Dose: 40 mg Potassium Chloride (Klor-Con 10) 20 meq PO BIDMEALS [facility] Last Admin: 08/23/18 11:00 Dose: Not Given Temazepam (Restoril) 15 mg PO BEDTIME PRN PRN Reason: Sleep Discontinued Medications Amlodipine Besylate (Norvasc) 2.5 mg PO ONETIME ONE Stop: 08/24/18 11:09 Last Admin: 08/24/18 11:16 Dose: 2.5 mg Clonidine HCl (Catapres) 0.1 mg PO STAT [facility] Last Admin: 08/22/18 18:00 Dose: 0.1 mg Enoxaparin Sodium (Lovenox) 30 mg SUBCUT Q24H [facility] Last Admin: 08/23/18 20:09 Dose: Not Given Fentanyl (Sublimaze) 25 mcg IVPUSH ONETIME ONE Stop: 08/22/18 16:33 Last Admin: 08/22/18 16:38 Dose: 25 mcg Fentanyl (Sublimaze) 25 mcg IVPUSH ONETIME ONE Stop: 08/22/18 17:18 Last Admin: 08/22/18 17:26 Dose: 25 mcg Sodium Chloride (Normal Saline) Confirm Administered Dose 250 mls @ as directed .ROUTE .STK-MED ONE Stop: 08/23/18 10:10 Last Admin: 08/23/18 10:18 Dose: 150 mls/hr Ketorolac Tromethamine (Toradol) 30 mg IM Q6H PRN PRN Reason: Pain (moderate 4-6) Latanoprost (Xalatan 0.005% Ophth Soln) 0 ml EYEBOTH BEDTIME [facility] Last Admin: 08/22/18 20:33 Dose: Not Given Metoprolol Tartrate (Lopressor) 2.5 mg IVPUSH ONETIME ONE Stop: 08/22/18 16:15 Last Admin: 08/22/18 16:18 Dose: 2.5 mg Metoprolol Tartrate (Lopressor) 2.5 mg IVPUSH ONETIME ONE Stop: 08/22/18 16:50 Last Admin: 08/22/18 16:49 Dose: 2.5 mg Potassium Chloride (Klor-Con 10) 40 meq PO ONETIME ONE Stop: 08/23/18 18:01 Last Admin: 08/23/18 17:18 Dose: 40 meq Sodium Chloride (Saline Flush) 10 ml FLUSH ASDIRECTED PRN PRN Reason: Keep Vein Open - Exam General: Reports: Alert, Oriented, No Acute Distress HEENT: Reports: Pupils Equal, Pupils Reactive, EOMI, Mucous Membr. Moist/[place] Lungs: Reports: Clear to Auscultation, Normal Respiratory Effort Cardiovascular: Reports: Regular Rate, Regular Rhythm, Murmurs (grade III systollic) GI/Abdominal Exam: Normal Bowel Sounds, Soft, Non-Tender, No Organomegaly, No Distention, No Abnormal Bruit, No Mass, Pelvis Stable Back Exam: Reports: Normal Inspection, Full Range of Motion Extremities: Normal Inspection, Normal Range of Motion, Non-Tender, No Pedal Edema, Normal Capillary Refill Neurological: Reports: No New Focal Deficit Psy/Mental Status: Reports: Alert, Normal Affect, Normal Mood
[2018-08-24] MEDS ORDERED: Ferrous Sulfate 324 MG Tab.EC ONE (12:29)
[2018-08-24] MEDS: Pantoprazole 40 MG Vial IVPUSH SCH (12:29)
[2018-08-24 12:42] VITALS: BP 180/82
[2018-08-24] MEDS ORDERED: Ferrous Sulfate 324 MG Tab.EC PO SCH (17:30)
== END 2018-08-24 13:35 | disposition home health service (06) ==
LOC: CC.ED 15:39 → CC.MS 18:20 → UNDOADMOB 18:20 → CC.MS 18:46 → UNDODISOB 08-24 13:35
PROVIDERS: ADMIT Nurse Practitioner Family; ATTEND Family Medicine
DX: I16.0 Hypertensive urgency (principal); R07.89 Other chest pain; D50.8 Other iron deficiency anemias; R51 Headache; I10 Essential (primary) hypertension; J45.909 Unspecified asthma, uncomplicated; Z79.899 Other long term (current) drug therapy; Z88.6 Allergy status to analgesic agent; Z91.012 Allergy to eggs
CPT/HCPCS: 36415; 36430; 70450; 71046; 80048; 80053; 81003; 82270; 82550; 82728; 83540; 83550; 83615; 84484; 85025; 86140; 86850; 86900; 86901; 86920; 86922; 93005; 96374; 96375; 96376; 99285; A9270; C9113; J1650; J3010; J3490; J7050; P9016

== ENCOUNTER 2019-03-23 14:53 | Observation (INO) | payer MEDICARE, BC ==
[2019-03-23] MEDS ORDERED: Sodium Chloride 0.9% 10 ML Syringe FLUSH PRN (16:35)
[2019-03-23] MEDS ORDERED: Albuterol 8 GM Inhaler INH PRN (16:37)
[2019-03-23] MEDS ORDERED: Loratadine 10 MG Tab PO PRN (16:37)
[2019-03-23 17:10] LABS: CHLORIDE,CL 103 mEq/L (98-106); SODIUM,NA 142 mEq/L (136-145)
[2019-03-23] MEDS ORDERED: Enoxaparin 40 MG/0.4 ML Syringe SUBCUT SCH (18:00)
[2019-03-23] MEDS: Enoxaparin 30 MG/0.3 ML Syringe SUBCUT SCH (19:05)
[2019-03-23] MEDS: Hydrocortisone 20 MG Tab PO SCH (19:41)
[2019-03-23] MEDS: busPIRone 5 MG Tab PO SCH (19:41)
[2019-03-23] MEDS: Latanoprost 0.005% Ophth Soln 2.5 ML Bottle EYEBOTH SCH (19:41)
[2019-03-23] MEDS: Gabapentin 100 MG Cap PO SCH (19:42)
[2019-03-23] MEDS: Gabapentin 300 MG Cap PO SCH (19:42)
[2019-03-23] MEDS: traZODone 50 MG Tab PO SCH (19:43)
[2019-03-23] MEDS: Acetaminophen/oxyCODONE 325-5 MG Tab PO PRN (19:44)
[2019-03-23] MEDS ORDERED: Non-Formulary Medication 1 Each (Brinzolamide [Azopt 1% Ophth Susp] 1 DROP) EYEBOTH SCH (20:00)
[2019-03-23] MEDS ORDERED: Non-Formulary Medication 1 Each (Cyclosporine [Restasis] 1 DROP) EYEBOTH SCH (20:00)
[2019-03-23] MEDS: LORazepam 0.5 MG Tab PO PRN (23:14)
[2019-03-24] MEDS: Pantoprazole 40 MG Tab.CR PO SCH (06:56)
[2019-03-24] MEDS: Gabapentin 100 MG Cap PO SCH ×3 (08:04→19:57)
[2019-03-24] MEDS: amLODIPine 10 MG Tab PO SCH (08:04)
[2019-03-24] MEDS: Lisinopril 20 MG Tab PO SCH (08:05)
[2019-03-24] MEDS: busPIRone 5 MG Tab PO SCH ×2 (08:05→19:55)
[2019-03-24] MEDS: Gabapentin 300 MG Cap PO SCH ×3 (08:05→19:57)
[2019-03-24] MEDS: Hydrocortisone 20 MG Tab PO SCH ×2 (08:07→19:56)
[2019-03-24] MEDS: Ketorolac 30 MG/ML SDV IVPUSH PRN ×2 (08:12→20:03)
[2019-03-24] MEDS: Acetaminophen/oxyCODONE 325-5 MG Tab PO PRN ×2 (09:12→15:36)
--- NOTE | 2019-03-24 09:19 | PCM.PN ---
- General Info Date of Service: 03/24/19 Admission Dx/Problem (Free Text): Low Back Pain with radiculopathy Functional Status: Reports: Pain Controlled, Tolerating Diet, Ambulating - Review of Systems General: Reports: Weakness, Fatigue, Malaise HEENT: Reports: No Symptoms Pulmonary: Denies: Shortness of Breath, Cough Cardiovascular: Denies: Chest Pain, Edema, Lightheadedness Gastrointestinal: Denies: Abdominal Pain, Nausea, Vomiting Genitourinary: Reports: No Symptoms Musculoskeletal: Reports: Back Pain, Leg Pain Skin: Reports: No Symptoms Neurological: Reports: Weakness - Patient Data Vitals - Most Recent: Last Vital Signs Temp 97.5 F 03/24/19 07:29 Pulse 104 H 03/24/19 07:29 Resp 16 03/24/19 07:29 BP 135/58 L 03/24/19 08:05 Pulse Ox 98 03/24/19 07:29 Weight - Most Recent: 89 lb 1 oz Lab Results Last 24 Hours: Laboratory Results - last 24 hr 03/23/19 03/23/19 Range/Units 16:35 16:35 WBC 7.0 (5.0-10.0) 10^3/uL RBC 3.86 L (4.00-5.50) 10^6/uL Hgb 11.0 L (12.0-16.0) g/dL Hct 34.7 L (37.0-47.0) % MCV 89.9 (82.0-94.0) fL MCH 28.5 (27.0-32.0) pg MCHC 31.7 L (33.0-38.0) g/dL RDW Coeff of Magui 14.1 (11.0-15.0) % Plt Count 317 (150-400) 10^3/uL Neut % (Auto) 62.8 (35-85) % Lymph % (Auto) 16.3 (10-55) % [place] % (Auto) 11.6 (0-16) % Eos % (Auto) 8.0 H (0-5) % Baso % (Auto) 1.3 (0-3) % Neut # (Auto) 4.42 (1.80-7.00) 10^3/uL Lymph # (Auto) 1.15 (1.00-4.80) 10^3/uL [place] # (Auto) 0.82 H (0.00-0.80) 10^3/uL Eos # (Auto) 0.56 H (0.00-0.45) 10^3/uL Baso # (Auto) 0.09 10^3/uL Sodium 142 (136-145) mEq/L Potassium 3.7 (3.5-5.0) mEq/L Chloride 103 (98-106) mEq/L Carbon Dioxide 29 (21-32) mmol/L BUN 17 (7-18) mg/dL Creatinine 0.7 (0.6-1.0) mg/dL Est Cr Clr Drug Dosing 39.52 mL/min Estimated GFR (MDRD) > 60 (>=60) mL/min Glucose 110 H (75-99) mg/dL Calcium 8.8 (8.4-10.1) mg/dL Magnesium 2.1 (1.8-2.4) mg/dL Total Bilirubin 0.2 (0.0-1.0) mg/dL AST 19 (15-37) U/L ALT 17 (12-78) U/L Alkaline Phosphatase 81 (46-116) U/L Creatine Kinase 154 (21-215) U/L Total Protein 6.1 L (6.4-8.2) g/dL Albumin 2.9 L (3.4-5.0) g/dL Med Orders - Current: Current Medications Albuterol (Ventolin Hfa) 0 gm INH Q4H PRN PRN Reason: Shortness of Breath Amlodipine Besylate (Norvasc) 5 mg PO DAILY [facility] Last Admin: 03/24/19 08:04 Dose: 5 mg Buspirone HCl (Buspar) 15 mg PO BID [facility] Last Admin: 03/24/19 08:05 Dose: 15 mg Enoxaparin Sodium (Lovenox) 30 mg SUBCUT DAILY@1800 [facility] Last Admin: 03/23/19 19:05 Dose: 30 mg Gabapentin (Neurontin) 100 mg PO TID [facility] Last Admin: 03/24/19 08:04 Dose: 100 mg Gabapentin (Neurontin) 300 mg PO TID [facility] Last Admin: 03/24/19 08:05 Dose: 300 mg Hydrocortisone (Cortef) 5 mg PO BEDTIME [facility] Last Admin: 03/23/19 19:41 Dose: 5 mg Hydrocortisone (Cortef) 10 mg PO DAILY [facility] Last Admin: 03/24/19 08:07 Dose: 10 mg Ketorolac Tromethamine (Toradol) 15 mg IVPUSH Q6H PRN PRN Reason: Pain Stop: 03/28/19 16:39 Last Admin: 03/24/19 08:12 Dose: 15 mg Latanoprost (Xalatan 0.005% Ophth Soln) 0 ml EYEBOTH BEDTIME [facility] Last Admin: 03/23/19 19:41 Dose: 1 drop Lisinopril (Prinivil) 20 mg PO DAILY [facility] Last Admin: 03/24/19 08:05 Dose: 20 mg Loratadine (Claritin) 10 mg PO DAILY PRN PRN Reason: Allergies Lorazepam (Ativan) 0.5 mg PO BEDTIME PRN PRN Reason: Sleep Last Admin: 03/23/19 23:14 Dose: 0.5 mg Non-Formulary Medication (Brinzolamide [Azopt 1% Ophth Susp]) 1 drop EYEBOTH BID [facility] Non-Formulary Medication (Cyclosporine [Restasis]) 1 drop EYEBOTH BID [facility] Oxycodone/Acetaminophen (Percocet 325-5 Mg) 1 tab PO Q4H PRN PRN Reason: Pain Last Admin: 03/23/19 19:44 Dose: 1 tab Pantoprazole Sodium (Protonix) 40 mg PO ACBREAKFAST [facility] Last Admin: 03/24/19 06:56 Dose: 40 mg Sodium Chloride (Saline Flush) 10 ml FLUSH ASDIRECTED PRN PRN Reason: Keep Vein Open Trazodone HCl (Trazodone) 50 mg PO BEDTIME [facility] Last Admin: 03/23/19 19:43 Dose: 50 mg - Exam General: Alert, Oriented HEENT: Mucous Membr. Moist/[place] Neck: Supple Lungs: Clear to Auscultation, Normal Respiratory Effort Cardiovascular: Regular Rate, Regular Rhythm GI/Abdominal Exam: Normal Bowel Sounds, Soft, Non-Tender Back Exam: Decreased Range of Motion, Vertebral Tenderness Extremities: Normal Inspection, No Pedal Edema Skin: Warm, Dry Neurological: No New Focal Deficit - Problem List & Annotations (1) Lumbar back pain with radiculopathy affecting lower extremity SNOMED Code(s): 189031673, [id number] Code(s): M54.16 - RADICULOPATHY, LUMBAR REGION Status: Acute Priority: High Current Visit: Yes - Problem List Review Problem List Initiated/Reviewed/Updated: Yes - Assessment Assessment:: Acute Low Back with radicular pain to lower extremity - Plan Plan:: Patient is resting comfortably. Was complaining of abdominal pain this am which resolved after being up to the bathroom. Pain is variable in back, states hurts more with activity. Radiates down left leg at times. Ambulates well with cane. buffing machine tender to low back with palpation. Will continue with pain meds, physical therapy to evaluate and treat today.
[2019-03-24] MEDS: Enoxaparin 30 MG/0.3 ML Syringe SUBCUT SCH (18:53)
[2019-03-24] MEDS: traZODone 50 MG Tab PO SCH (19:56)
[2019-03-24] MEDS: Latanoprost 0.005% Ophth Soln 2.5 ML Bottle EYEBOTH SCH (19:57)
[2019-03-24] MEDS: LORazepam 0.5 MG Tab PO PRN (21:07)
[2019-03-25] MEDS ORDERED: Docusate Sodium 100 MG Cap PO PRN (00:46)
[2019-03-25] MEDS: Ketorolac 30 MG/ML SDV IVPUSH PRN (06:03)
[2019-03-25 06:07] VITALS: PULSE 66
[2019-03-25] MEDS: Pantoprazole 40 MG Tab.CR PO SCH (06:48)
[2019-03-25 08:18] VITALS: BP 142/51
[2019-03-25] MEDS: amLODIPine 10 MG Tab PO SCH (08:18)
[2019-03-25] MEDS: Hydrocortisone 20 MG Tab PO SCH (08:19)
[2019-03-25] MEDS: busPIRone 5 MG Tab PO SCH (08:19)
[2019-03-25] MEDS: Gabapentin 300 MG Cap PO SCH (08:20)
[2019-03-25] MEDS: Gabapentin 100 MG Cap PO SCH (08:20)
[2019-03-25] MEDS: Lisinopril 20 MG Tab PO SCH (08:20)
--- NOTE | 2019-03-25 09:10 | PCM.DCSUM1 ---
Discharge Summary - Hospital Course Free Text/Narrative:: Patient presented to clinic due to intractable back pain with radiculopathy to left anterior thigh. Has had increasing pain over the last week, not responding well to her usual pain meds. Does note that pain is worse at night, improves with rest. Had not been getting pain relief with her usual Percocet and Gabapentin at home. Admitted for pain control and physical therapy Diagnosis: Stroke: No Modified [place] Scale: No Symptoms at All Modified [place] Scale Score: 0 - Discharge Data Discharge Date: 03/25/19 Discharge Disposition: Home, W Home Health Agency 06 Condition: Fair - Referral to Home Health Date of Face to Face Encounter: 03/25/19 Reason for Homebound Status: patient unable to drive due to weakness/narcotic pain control Primary Care Physician: Grant Puckett MD to oversee home health plan of care Skilled Need: Nursing to follow pain level/control. Will also monitor for GI effects from medications. Blood pressure control. Physical therapy to treat for strengthening and ambulation. Occupational therapy for ADLs, home safety. - Discharge Diagnosis/Problem(s) (1) Lumbar back pain with radiculopathy affecting lower extremity SNOMED Code(s): 466235399, [id number] ICD Code: M54.16 - RADICULOPATHY, LUMBAR REGION Status: Acute Priority: High - Patient Summary/Data Consults: Consultations 03/23/19 16:35 PT Evaluation and Treatment [CONS] Routine Hospital Course: Patient is doing well. Getting in and out of bed per self. She admits to decreased pain in back and leg. Labs normal on admit. No acute changes noted on xrays. Physical therapy does feel she is at her norm at this point. Will discharge home on usual meds. Home health on discharge. - Patient Instructions Diet: Usual Diet as Tolerated Activity: As Tolerated - Discharge Plan *PRESCRIPTION DRUG MONITORING PROGRAM REVIEWED*: No *COPY OF PRESCRIPTION DRUG MONITORING REPORT IN PATIENT KLARISSA: No Home Medications: Home Meds LORazepam [Ativan] 0.5 mg PO BEDTIME PRN 05/01/13 [History] Multivitamin [Multivitamins] 1 each PO DAILY 05/01/13 [History] busPIRone HCl [Buspirone HCl] 15 mg PO BID 05/01/13 [History] cycloSPORINE [Restasis] 1 drop EYEBOTH BID 05/01/13 [History] Bimatoprost [Lumigan 0.01% Ophth Soln] 1 drop EYEBOTH BEDTIME 09/17/13 [History] Cyanocobalamin (Vitamin B12) [Vitamin B12] 1 ml IM Q30D 11/10/14 [History] Hydrocortisone 10 mg PO DAILY 11/18/15 [History] Brinzolamide [Azopt 1% Ophth Susp] 1 drop EYEBOTH BID 08/22/18 [History] Fexofenadine HCl [Allergy Relief] 180 mg PO DAILY PRN 08/22/18 [History] Gabapentin [Neurontin] 100 mg PO TID 08/22/18 [History] Gabapentin [Neurontin] 300 mg PO TID 08/22/18 [History] Hydrocortisone [Cortef] 5 mg PO BEDTIME 08/22/18 [History] Ibuprofen [Advil] 400 mg PO Q6HR PRN 08/22/18 [History] oxyCODONE HCl/Acetaminophen [Oxycodone-Acetaminophen 5-325] 1 tab PO Q4HR PRN [History] Lisinopril [Prinivil] 20 mg PO DAILY #30 tab 08/24/18 [Rx] Pantoprazole Sodium [Protonix] 40 mg PO DAILY #30 tablet. 08/24/18 [Rx] amLODIPine [Norvasc] 5 mg PO DAILY #30 tab 08/24/18 [Rx] Albuterol [Ventolin HFA] 2 puff INH Q4H PRN 03/23/19 [History] Beta-Carotene(A) W-C & E/Min [Vision Vitamins] 1 tab PO DAILY 03/23/19 [History] Calcium Carb/Vitamin D3/Vit K1 [Viactiv 650 mg-12.5 Mcg Chew] 1 tab PO DAILY [History] Loratadine [Claritin] 1 tab PO DAILY 03/23/19 [History] traZODone HCl [Trazodone HCl] 1 tab PO BEDTIME 03/23/19 [History] Referrals: Grant Puckett MD [Primary Care Provider] - (Follow up with Dr. Puckett in one week) - Discharge Summary/Plan Comment DC Time >30 min.: No - General Info Date of Service: 03/25/19 Admission Dx/Problem (Free Text: Low Back Pain with radiculopathy Functional Status: Reports: Pain Controlled, Tolerating Diet, Ambulating - Review of Systems General: Reports: Weakness, Fatigue, Malaise HEENT: Reports: No Symptoms Pulmonary: Denies: Shortness of Breath, Cough Cardiovascular: Denies: Chest Pain, Edema, Lightheadedness Gastrointestinal: Denies: Abdominal Pain, Nausea, Vomiting Genitourinary: Reports: No Symptoms Musculoskeletal: Reports: Back Pain, Leg Pain Skin: Reports: No Symptoms Neurological: Reports: Weakness - Patient Data Vitals - Most Recent: Last Vital Signs Temp 99.4 F 03/25/19 08:00 Pulse 66 03/25/19 08:00 Resp 20 03/25/19 08:00 BP 142/51 H 03/25/19 08:20 Pulse Ox 99 03/25/19 08:00 Weight - Most Recent: 89 lb 1 oz Med Orders - Current: Current Medications Albuterol (Ventolin Hfa) 0 gm INH Q4H PRN PRN Reason: Shortness of Breath Amlodipine Besylate (Norvasc) 5 mg PO DAILY [facility] Last Admin: 03/25/19 08:18 Dose: 5 mg Buspirone HCl (Buspar) 15 mg PO BID [facility] Last Admin: 03/25/19 08:19 Dose: 15 mg Docusate Sodium (Colace) 100 mg PO DAILY PRN PRN Reason: Constipation Last Admin: 03/25/19 01:10 Dose: 100 mg Enoxaparin Sodium (Lovenox) 30 mg SUBCUT DAILY@1800 [facility] Last Admin: 03/24/19 18:53 Dose: 30 mg Gabapentin (Neurontin) 100 mg PO TID [facility] Last Admin: 03/25/19 08:20 Dose: 100 mg Gabapentin (Neurontin) 300 mg PO TID [facility] Last Admin: 03/25/19 08:20 Dose: 300 mg Hydrocortisone (Cortef) 5 mg PO BEDTIME [facility] Last Admin: 03/24/19 19:56 Dose: 5 mg Hydrocortisone (Cortef) 10 mg PO DAILY [facility] Last Admin: 03/25/19 08:19 Dose: 10 mg Ketorolac Tromethamine (Toradol) 15 mg IVPUSH Q6H PRN PRN Reason: Pain Stop: 03/28/19 16:39 Last Admin: 03/25/19 06:03 Dose: 15 mg Latanoprost (Xalatan 0.005% Ophth Soln) 0 ml EYEBOTH BEDTIME [facility] Last Admin: 03/24/19 19:57 Dose: 1 drop Lisinopril (Prinivil) 20 mg PO DAILY [facility] Last Admin: 03/25/19 08:20 Dose: 20 mg Loratadine (Claritin) 10 mg PO DAILY PRN PRN Reason: Allergies Lorazepam (Ativan) 0.5 mg PO BEDTIME PRN PRN Reason: Sleep Last Admin: 03/24/19 21:07 Dose: 0.5 mg Non-Formulary Medication (Brinzolamide [Azopt 1% Ophth Susp]) 1 drop EYEBOTH BID [facility] Non-Formulary Medication (Cyclosporine [Restasis]) 1 drop EYEBOTH BID [facility] Oxycodone/Acetaminophen (Percocet 325-5 Mg) 1 tab PO Q4H PRN PRN Reason: Pain Last Admin: 03/24/19 15:36 Dose: 1 tab Pantoprazole Sodium (Protonix) 40 mg PO ACBREAKFAST [facility] Last Admin: 03/25/19 06:48 Dose: 40 mg Sodium Chloride (Saline Flush) 10 ml FLUSH ASDIRECTED PRN PRN Reason: Keep Vein Open Trazodone HCl (Trazodone) 50 mg PO BEDTIME [facility] Last Admin: 03/24/19 19:56 Dose: 50 mg - Exam General: Reports: Alert, Oriented HEENT: Reports: Mucous Membr. Moist/[place] Neck: Reports: Supple Lungs: Reports: Clear to Auscultation, Normal Respiratory Effort Cardiovascular: Reports: Regular Rate, Regular Rhythm, Murmurs GI/Abdominal Exam: Normal Bowel Sounds, Soft, Non-Tender Back Exam: Reports: Decreased Range of Motion. Denies: Vertebral Tenderness Extremities: Normal Inspection, No Pedal Edema Skin: Reports: Warm, Dry Neurological: Reports: No New Focal Deficit
== END 2019-03-25 09:40 | disposition home health service (06) ==
LOC: UNDOADMOB 14:53 → CC.MS 14:53
PROVIDERS: ADMIT Family Medicine; ATTEND Family Medicine
DX: M54.16 Radiculopathy, lumbar region (principal); M06.9 Rheumatoid arthritis, unspecified; M81.0 Age-related osteoporosis without current pathological fracture; J45.909 Unspecified asthma, uncomplicated; I10 Essential (primary) hypertension; K21.9 Gastro-esophageal reflux disease without esophagitis; E03.9 Hypothyroidism, unspecified; E78.5 Hyperlipidemia, unspecified; F41.9 Anxiety disorder, unspecified; Z79.899 Other long term (current) drug therapy; Z79.52 Long term (current) use of systemic steroids; Z88.6 Allergy status to analgesic agent
CPT/HCPCS: 36415; 72100; 80053; 82550; 83735; 85025; 96372; 96374; 96376; 97164-GP; 99217; 99219; 99225; A9270-GY; G0378; J1650; J1885

== ENCOUNTER 2019-07-31 15:31 | Emergency (ER) | payer MEDICARE, BC ==
[2019-07-31] MEDS ORDERED: Aspirin 81 MG Tab.Chew PO ONE (15:32)
--- NOTE | 2019-07-31 15:55 | EDM.PDOC ---
ED HPI GENERAL MEDICAL PROBLEM - General Chief Complaint: Chest Pain Stated Complaint: chest pain Time Seen by Provider: 07/31/19 15:36 Source of Information: Reports: Patient History Limitations: Reports: No Limitations - History of Present Illness INITIAL COMMENTS - FREE TEXT/NARRATIVE: This patient is an 83 year old female that presents to the ER. Patient was in clinic and sent to the ER for cardiac chest evaluation. The patient reports that she has had central chest pain for about a couple of weeks, but worse the last few days. She reports that the pain comes and goes. She reports that when she has the pain, she has nausea and does vomit. She reports that she does not have shortness of breath with it. Patient reports that nothing seems to make it worse or come and go. She reports that the last time she had the pain was yesterday. She reports she did not have any pain today and no pain currently. Onset Date: 07/17/19 Duration: Getting Worse (" last few days") Location: Reports: Chest Quality: Reports: Sharp Severity: Moderate Improves with: Reports: None Worsens with: Reports: None Associated Symptoms: Reports: Chest Pain, Nausea/Vomiting. Denies: Confusion, Cough, cough w sputum, Diaphoresis, Fever/Chills, Headaches, Loss of Appetite, Malaise, Rash, Seizure, Shortness of Breath, Syncope, Weakness - Related Data Allergies Allergy/AdvReac Type Severity Reaction Status Date / Time aspirin Allergy Mild Stomach Verified 07/31/19 16:22 Upset celecoxib [From Celebrex] Allergy Cannot Verified 07/31/19 16:22 Remember egg Allergy Stomach Verified 07/31/19 16:22 Upset egg Allergy Stomach Uncoded 07/31/19 16:22 Upset Home Meds: Home Meds LORazepam [Ativan] 0.5 mg PO BEDTIME PRN 05/01/13 [History] Multivitamin [Multivitamins] 1 each PO DAILY 05/01/13 [History] busPIRone HCl [Buspirone HCl] 15 mg PO BID 05/01/13 [History] cycloSPORINE [Restasis] 1 drop EYEBOTH BID 05/01/13 [History] Bimatoprost [Lumigan 0.01% Ophth Soln] 1 drop EYEBOTH BEDTIME 09/17/13 [History] Cyanocobalamin (Vitamin B12) [Vitamin B12] 1 ml IM Q30D 11/10/14 [History] Hydrocortisone 10 mg PO DAILY 11/18/15 [History] Brinzolamide [Azopt 1% Ophth Susp] 1 drop EYEBOTH BID 08/22/18 [History] Fexofenadine HCl [Allergy Relief] 180 mg PO DAILY PRN 08/22/18 [History] Gabapentin [Neurontin] 600 mg PO TID 08/22/18 [History] Hydrocortisone [Cortef] 5 mg PO BEDTIME 08/22/18 [History] Ibuprofen [Advil] 400 mg PO Q6HR PRN 08/22/18 [History] oxyCODONE HCl/Acetaminophen [Oxycodone-Acetaminophen 5-325] 1 tab PO Q4HR PRN [History] Pantoprazole Sodium [Protonix] 40 mg PO DAILY #30 tablet.dr 08/24/18 [Rx] amLODIPine [Norvasc] 5 mg PO DAILY #30 tab 08/24/18 [Rx] lisinopriL [Prinivil] 20 mg PO DAILY #30 tab 08/24/18 [Rx] Albuterol [Ventolin HFA] 2 puff INH Q4H PRN 03/23/19 [History] Beta-Carotene(A)-Vits C,E/Mins [Vision Vitamins] 1 tab PO DAILY 03/23/19 [ History] Calcium Carb/Vitamin D3/Vit K1 [Viactiv 650 mg-12.5 Mcg Chew] 1 tab PO DAILY [History] Loratadine [Claritin] 1 tab PO DAILY 03/23/19 [History] traZODone HCl [Trazodone HCl] 1 tab PO BEDTIME 03/23/19 [History] Aspirin [Halfprin] 81 mg PO DAILY #30 tab.ec 07/31/19 [Rx] Simvastatin 10 mg PO QPM #30 tablet 07/31/19 [Rx] Past Medical History HEENT History: Reports: Cataract, Other (See Below) Other HEENT History: Had left eye surgery 1-2 months ago. Cardiovascular History: Reports: Hypertension Respiratory History: Reports: Asthma Musculoskeletal History: Reports: Arthritis, Back Pain, Chronic Psychiatric History: Reports: Depression - Past Surgical History GI Surgical History: Reports: Appendectomy, Cholecystectomy, Other (See Below) Female Surgical History: Reports: Hysterectomy Musculoskeletal Surgical History: Reports: Other (See Below) Social & Family History - Family History Family Medical History: Noncontributory Cardiac: Reports: IN Respiratory: Reports: Asthma Musculoskeletal: Reports: Osteoarthritis Oncologic: Reports: Ovarian - Caffeine Use Caffeine Use: Reports: None ED ROS GENERAL - Review of Systems Review Of Systems: See Below Constitutional: Reports: No Symptoms HEENT: Reports: No Symptoms Respiratory: Reports: No Symptoms. Denies: Shortness of Breath, Wheezing, Cough , Sputum Cardiovascular: Reports: Chest Pain. Denies: Dyspnea on Exertion, Edema, Lightheadedness, Orthopnea, Palpitations, Syncope Endocrine: Reports: No Symptoms GI/Abdominal: Reports: Nausea, Vomiting. Denies: Abdominal Pain, Diarrhea : Reports: No Symptoms Musculoskeletal: Reports: No Symptoms Skin: Reports: No Symptoms Neurological: Reports: No Symptoms. Denies: Dizziness, Headache, Numbness, Syncope, Tremors, Difficulty Walking, Weakness, Change in Speech, Gait Disturbance Psychiatric: Reports: No Symptoms Hematologic/Lymphatic: Reports: No Symptoms Immunologic: Reports: No Symptoms ED EXAM, GENERAL - Physical Exam Exam: See Below Exam Limited By: No Limitations General Appearance: Alert, WD/WN, No Apparent Distress Eye Exam: Bilateral Eye: Normal Inspection, PERRL Ears: Normal External Exam, Normal Canal, Hearing Grossly Normal, Normal TMs Ear Exam: Bilateral Ear: Auricle Normal, Canal Normal, TM normal Nose: Normal Inspection, Normal Mucosa, No Blood Throat/Mouth: Normal Inspection, Normal Lips, Normal Teeth, Normal Gums, Normal Oropharynx, Normal Voice, No Airway Compromise Head: Atraumatic, Normocephalic Neck: Normal Inspection, Supple, Non-Tender, Full Range of Motion Respiratory/Chest: No Respiratory Distress, Lungs Clear, Normal Breath Sounds, No Accessory Muscle Use, Other (Central chest mild tenderness with palpation. I am able to reproduce the same pain with palpation, per patient.) Cardiovascular: Normal Peripheral Pulses, Regular Rate, Rhythm, No Edema, No Gallop, No JVD, No Murmur, No Rub Peripheral Pulses: 2+: Radial (L), Radial (R), Posterior Tibial (L), Posterior Tibial (R), Dorsalis Pedis (L), Dorsalis Pedis (R) GI/Abdominal: Normal Bowel Sounds, Soft, Non-Tender, No Organomegaly, No Distention, No Abnormal Bruit, No Mass, Pelvis Stable Back Exam: Normal Inspection, Full Range of Motion Extremities: Normal Inspection, Normal Range of Motion, Non-Tender, No Pedal Edema, Normal Capillary Refill Neurological: Alert, Oriented (to person and place. ), Normal Cognition, Normal Gait, No Motor/Sensory Deficits Psychiatric: Normal Affect, Normal Mood Skin Exam: Warm, Dry, Intact, Normal Color, No Rash Lymphatic: No Adenopathy EKG INTERPRETATION EKG Date: 07/31/19 Time: 15:48 Rhythm: NSR Rate (Beats/Min): 68 P-Wave: Present QRS: Normal ST-T: Normal QT: Normal Comparison: No Change Course - Vital Signs Last Recorded V/S: Last Vital Signs Temp 98.2 F 07/31/19 16:51 Pulse 64 07/31/19 16:54 Resp 16 07/31/19 16:51 BP 106/64 07/31/19 16:59 Pulse Ox 97 07/31/19 16:51 - Orders/Labs/Meds Orders: Active Orders 24 hr Category Date Time Status CXR [Chest 2V] [CR] Stat Exams 07/31/19 15:33 Taken Labs: Laboratory Tests 07/31/19 07/31/19 07/31/19 Range/Units 15:33 15:33 15:33 WBC 7.6 (5.0-10.0) 10^3/uL RBC 4.18 (4.00-5.50) 10^6/uL Hgb 11.6 L (12.0-16.0) g/dL Hct 37.5 (37.0-47.0) % MCV 89.7 (82.0-94.0) fL MCH 27.8 (27.0-32.0) pg MCHC 30.9 L (33.0-38.0) g/dL RDW Coeff of Magui 14.6 (11.0-15.0) % Plt Count 273 (150-400) 10^3/uL Neut % (Auto) 61.2 (35-85) % Lymph % (Auto) 20.0 (10-55) % [place] % (Auto) 14.2 (0-16) % Eos % (Auto) 3.8 (0-5) % Baso % (Auto) 0.8 (0-3) % Neut # (Auto) 4.62 (1.80-7.00) 10^3/uL Lymph # (Auto) 1.51 (1.00-4.80) 10^3/uL [place] # (Auto) 1.07 H (0.00-0.80) 10^3/uL Eos # (Auto) 0.29 (0.00-0.45) 10^3/uL Baso # (Auto) 0.06 10^3/uL PT 10.1 (9.7-12.3) SEC INR 0.98 (0.92-1.18) APTT 29.2 (23.2-32.3) SEC Sodium 143 (136-145) mEq/L Potassium 3.1 L (3.5-5.0) mEq/L Chloride 100 (98-106) mEq/L Carbon Dioxide 34 H (21-32) mmol/L BUN 15 (7-18) mg/dL Creatinine 0.8 (0.6-1.0) mg/dL Est Cr Clr Drug Dosing 35.72 mL/min Estimated GFR (MDRD) > 60 (>=60) mL/min Glucose 110 H (75-99) mg/dL Calcium 9.3 (8.4-10.1) mg/dL Total Bilirubin 0.2 (0.0-1.0) mg/dL AST 26 (15-37) U/L ALT 30 (12-78) U/L Alkaline Phosphatase 91 (46-116) U/L Lactate Dehydrogenase 222 H (100-190) U/L Creatine Kinase 144 (21-215) U/L Troponin I 0.035 (0.00-0.06) ng/mL Total Protein 6.3 L (6.4-8.2) g/dL Albumin 3.1 L (3.4-5.0) g/dL Amylase 59 (25-115) U/L Lipase 116 (73-393) U/L Meds: Medications Discontinued Medications Generic Name Dose Route Start Last Admin Trade Name Freq PRN Reason Stop Dose Admin Aspirin 324 mg 07/31/19 15:32 07/31/19 16:22 Aspirin PO 07/31/19 15:33 Not Given ONETIME ONE Nitroglycerin 0.4 mg 07/31/19 16:49 07/31/19 16:54 Nitrostat SL 07/31/19 16:50 0.4 mg ONETIME ONE Administration - Radiology Interpretation Free Text/Narrative:: CXR: "No cause of chest pain" - Re-Assessments/Exams Free Text/Narrative Re-Assessment/Exam: 07/31/19 15:57 I reviewed patient echocardiogram and stress test results from 2015. 07/31/19 16:29 Patient HEART Score is 4: Moderate due to moderate suspicious, age, and HTN. 07/31/19 16:55 This patient just now started complaining of active chest pain as I was explaining results to her and family. Son reports that the patient really has only been complaining since last night. He reports she has had pain complaints today as well, but last night was bad. The son reports has only been going on since last night. The does report "its been going on for a while." Timing is uncertain now that the son is at bedside. The patient is alert, oriented to self and place, but not time. This is her baseline. I have ordered a nitro sl to see if this helps the patient. She denies shortness of breath and nausea. 07/31/19 17:13 Patient states her pain has resolved after the nitro. 07/31/19 18:04 I called and spoke to Dr. Miles hospitalist at [facility]. He reports no stress until Saturday. He reports sounds likes table angina. He reports could send home with a statin and asa order. Or could admit over the weekend. I did discuss this with patient, patient , and patient son. They want to go home. They do not want admit. Patient is pain free. Son reports patient wont be admitted or transferred unless an emergency. Wants to take her home. Educated when to return. Departure - Departure Time of Disposition: 17:57 Disposition: Home, Self-Care 01 Condition: Fair Clinical Impression: Stable angina Prescriptions: Aspirin [Halfprin] 81 mg PO DAILY #30 tab.ec Simvastatin 10 mg PO QPM #30 tablet Instructions: Nonspecific Chest Pain, [id number], Angina Pectoris, Easy-to- Read Referrals: Junaid Walsh PA-C [Primary Care Provider] - Forms: ED Department Discharge Additional Instructions: Followup with your primary care provider for a stress test and recheck Return to the ER for worsening of condition or any emergent concerns Return if chest pain returns or becomes constant I did prescribe you a medication for cholesterol and heart: Please take with food to prevent upset belly Aspirin 81mg 1 pill once a day #30 no refill Simvastatin 10mg 1 pill at night #30 no refill Sepsis Event Note - Focused Exam Vital Signs: Vital Signs Temp Pulse Pulse Resp BP BP Pulse Ox 07/31/19 16:59 106/64 07/31/19 16:54 64 139/74 07/31/19 16:51 98.2 F 63 16 139/74 97 07/31/19 16:09 63 18 151/68 H 99 07/31/19 15:44 98.3 F 68 18 141/62 H 99 Date Exam was Performed: 07/31/19 Time Exam was Performed: 18:03 - My Orders Last 24 Hours: My Active Orders 07/31/19 15:33 CXR [Chest 2V] [CR] Stat - Assessment/Plan Last 24 Hours: My Active Orders 07/31/19 15:33 CXR [Chest 2V] [CR] Stat Plan: PLEASE SEE RN NOTE FOR PFSH.
[2019-07-31 16:03] LABS: CHLORIDE,CL 100 mEq/L (98-106); SODIUM,NA 143 mEq/L (136-145)
[2019-07-31 16:12] LABS: PTT,PARTIAL THROMBOPLSTIN TIME 29.2 SEC (23.2-32.3)
[2019-07-31] MEDS ORDERED: Nitroglycerin 0.4 MG Tab.SL SL ONE (16:49)
[2019-07-31 16:55] VITALS: PULSE 64
[2019-07-31 17:00] VITALS: BP 106/64
== END 2019-07-31 18:10 | disposition home or self-care (01) ==
LOC: CC.ED 15:31
DX: I20.8 Other forms of angina pectoris (principal); I10 Essential (primary) hypertension; J45.909 Unspecified asthma, uncomplicated; F32.9 Major depressive disorder, single episode, unspecified; M19.90 Unspecified osteoarthritis, unspecified site; Z88.8 Allergy status to other drugs, medicaments and biological substances; Z91.012 Allergy to eggs; Z79.899 Other long term (current) drug therapy
CPT/HCPCS: 36415; 71046; 80053; 82150; 82550; 83615; 83690; 84484; 85025; 85610; 85730; 93005; 99284; 99285-25; A9270-GY

== ENCOUNTER 2019-11-02 15:36 | Emergency (ER) | payer MEDICARE, BC ==
--- NOTE | 2019-11-02 16:25 | EDM.PDOC ---
ED HPI GENERAL MEDICAL PROBLEM - General Chief Complaint: Chest Pain Stated Complaint: SOB Time Seen by Provider: 11/02/19 15:58 Source of Information: Reports: Patient History Limitations: Reports: No Limitations - History of Present Illness INITIAL COMMENTS - FREE TEXT/NARRATIVE: Patient presents to ER with complaints of shortness of breath and chest discomfort. States "hard to breathe". Patient states unable to take a deep breath due to discomfort. History of asthma, has been out of her inhaler for a few days. Has not noted any wheezing. Denies fever. No cough. Has 10/10 chest discomfort. No edema. Has been eating and drinking well. No diarrhea or constipation. Onset: Today Duration: Hour(s): Location: Reports: Chest Quality: Reports: Ache Severity: Severe Associated Symptoms: Reports: Shortness of Breath, Weakness. Denies: Cough, Fever/Chills, Loss of Appetite, Nausea/Vomiting Chest Pain Score (Numeric/FACES): 10 - Related Data Allergies Allergy/AdvReac Type Severity Reaction Status Date / Time aspirin Allergy Mild Stomach Verified 11/02/19 15:39 Upset celecoxib [From Celebrex] Allergy Cannot Verified 11/02/19 15:39 Remember egg Allergy Stomach Verified 11/02/19 15:39 Upset egg Allergy Stomach Uncoded 11/02/19 15:39 Upset Home Meds: Home Meds LORazepam [Ativan] 0.5 mg PO BEDTIME PRN 05/01/13 [History] Multivitamin [Multivitamins] 1 each PO DAILY 05/01/13 [History] busPIRone HCl [Buspirone HCl] 15 mg PO BID 05/01/13 [History] cycloSPORINE [Restasis] 1 drop EYEBOTH BID 05/01/13 [History] Bimatoprost [Lumigan 0.01% Ophth Soln] 1 drop EYEBOTH BEDTIME 09/17/13 [History] Cyanocobalamin (Vitamin B12) [Vitamin B12] 1 ml IM Q30D 11/10/14 [History] Hydrocortisone 10 mg PO DAILY 11/18/15 [History] Brinzolamide [Azopt 1% Ophth Susp] 1 drop EYEBOTH BID 08/22/18 [History] Fexofenadine HCl [Allergy Relief] 180 mg PO DAILY PRN 08/22/18 [History] Gabapentin [Neurontin] 600 mg PO TID 08/22/18 [History] Hydrocortisone [Cortef] 5 mg PO BEDTIME 08/22/18 [History] Ibuprofen [Advil] 400 mg PO Q6HR PRN 08/22/18 [History] oxyCODONE HCl/Acetaminophen [Oxycodone-Acetaminophen 5-325] 1 tab PO Q4HR PRN [History] Pantoprazole Sodium [Protonix] 40 mg PO DAILY #30 tablet.dr 08/24/18 [Rx] amLODIPine [Norvasc] 5 mg PO DAILY #30 tab 08/24/18 [Rx] lisinopriL [Prinivil] 20 mg PO DAILY #30 tab 08/24/18 [Rx] Albuterol [Ventolin HFA] 2 puff INH Q4H PRN 03/23/19 [History] Beta-Carotene(A)-Vits C,E/Mins [Vision Vitamins] 1 tab PO DAILY 03/23/19 [ History] Calcium Carb/Vitamin D3/Vit K1 [Viactiv 650 mg-12.5 Mcg Chew] 1 tab PO DAILY [History] Loratadine [Claritin] 1 tab PO DAILY 03/23/19 [History] traZODone HCl [Trazodone HCl] 1 tab PO BEDTIME 03/23/19 [History] Aspirin [Halfprin] 81 mg PO DAILY #30 tab.ec 07/31/19 [Rx] Simvastatin 10 mg PO QPM #30 tablet 07/31/19 [Rx] Furosemide [Lasix] 20 mg PO DAILY #30 tab 11/02/19 [Rx] Past Medical History HEENT History: Reports: Cataract, Other (See Below) Other HEENT History: Had left eye surgery 1-2 months ago. Cardiovascular History: Reports: Hypertension Respiratory History: Reports: Asthma Musculoskeletal History: Reports: Arthritis, Back Pain, Chronic Psychiatric History: Reports: Depression - Past Surgical History GI Surgical History: Reports: Appendectomy, Cholecystectomy, Other (See Below) Female Surgical History: Reports: Hysterectomy Musculoskeletal Surgical History: Reports: Other (See Below) Social & Family History - Family History Family Medical History: Noncontributory Cardiac: Reports: [place] Respiratory: Reports: Asthma Musculoskeletal: Reports: Osteoarthritis Oncologic: Reports: Ovarian - Tobacco Use Smoking Status *Q: Never Smoker - Caffeine Use Caffeine Use: Reports: None - Recreational Drug Use Recreational Drug Use: No ED ROS GENERAL - Review of Systems Review Of Systems: See Below Constitutional: Reports: Malaise, Weakness, Fatigue. Denies: Fever, Chills HEENT: Denies: Ear Pain, Sinus Problem, Throat Pain Respiratory: Reports: Shortness of Breath, Pleuritic Chest Pain. Denies: Cough Cardiovascular: Reports: Chest Pain. Denies: Edema, Lightheadedness Endocrine: Reports: Fatigue GI/Abdominal: Denies: Abdominal Pain, Constipation, Diarrhea, Nausea, Vomiting : Reports: No Symptoms Musculoskeletal: Reports: No Symptoms Skin: Reports: No Symptoms Neurological: Reports: No Symptoms Psychiatric: Reports: Anxiety ED EXAM, GENERAL - Physical Exam Exam: See Below Exam Limited By: No Limitations General Appearance: Alert, WD/WN, No Apparent Distress Ears: Normal External Exam, Normal TMs Nose: Normal Inspection, Normal Mucosa, No Blood Throat/Mouth: Normal Inspection, Normal Oropharynx Head: Normocephalic Neck: Normal Inspection, Supple, Non-Tender Respiratory/Chest: No Respiratory Distress, Lungs Clear, Normal Breath Sounds Cardiovascular: Regular Rate, Rhythm GI/Abdominal: Normal Bowel Sounds, Soft, Non-Tender Extremities: Normal Inspection, No Pedal Edema Neurological: Alert, Oriented Skin Exam: Warm, Dry Course - Vital Signs Last Recorded V/S: Last Vital Signs Temp 98.5 F 11/02/19 16:30 Pulse 56 L 11/02/19 16:30 Resp 9 L 11/02/19 16:30 BP 184/77 H 11/02/19 16:30 Pulse Ox 99 11/02/19 16:30 - Orders/Labs/Meds Orders: Active Orders 24 hr Category Date Time Status Chest 2V [CR] Stat Exams 11/02/19 16:11 Ordered Labs: Laboratory Tests 11/02/19 11/02/19 11/02/19 Range/Units 15:51 15:51 15:51 WBC 5.2 (5.0-10.0) 10^3/uL RBC 3.75 L (4.00-5.50) 10^6/uL Hgb 9.8 L (12.0-16.0) g/dL Hct 30.5 L (37.0-47.0) % MCV 81.3 L (82.0-94.0) fL MCH 26.1 L (27.0-32.0) pg MCHC 32.1 L (33.0-38.0) g/dL RDW Coeff of Magui 16.4 H (11.0-15.0) % Plt Count 342 (150-400) 10^3/uL Neut % (Auto) 46.8 (35-85) % Lymph % (Auto) 32.2 (10-55) % [place] % (Auto) 12.2 (0-16) % Eos % (Auto) 7.2 H (0-5) % Baso % (Auto) 1.6 (0-3) % Neut # (Auto) 2.41 (1.80-7.00) 10^3/uL Lymph # (Auto) 1.66 (1.00-4.80) 10^3/uL [place] # (Auto) 0.63 (0.00-0.80) 10^3/uL Eos # (Auto) 0.37 (0.00-0.45) 10^3/uL Baso # (Auto) 0.08 10^3/uL PT 10.3 (9.7-12.3) SEC INR 1.02 (0.92-1.18) D-Dimer, Quantitative (0.00-0.50) Sodium 142 (136-145) mEq/L Potassium 3.5 (3.5-5.0) mEq/L Chloride 105 (98-106) mEq/L Carbon Dioxide 30 (21-32) mmol/L BUN 16 (7-18) mg/dL Creatinine 0.9 (0.6-1.0) mg/dL Est Cr Clr Drug Dosing 32.78 mL/min Estimated GFR (MDRD) 60 (>=60) mL/min Glucose 107 H (75-99) mg/dL Calcium 8.8 (8.4-10.1) mg/dL Lactate Dehydrogenase 255 H (100-190) U/L Creatine Kinase 190 (21-215) U/L Troponin I < 0.017 (0.00-0.06) ng/mL NT-Pro-B Natriuret Pep 1234 H (0-1000) pg/mL SARS-CoV-2 RNA (RT-PCR) (NEGATIVE) 11/02/19 11/02/19 Range/Units 16:06 16:09 WBC (5.0-10.0) 10^3/uL RBC (4.00-5.50) 10^6/uL Hgb (12.0-16.0) g/dL Hct (37.0-47.0) % MCV (82.0-94.0) fL MCH (27.0-32.0) pg MCHC (33.0-38.0) g/dL RDW Coeff of Magui (11.0-15.0) % Plt Count (150-400) 10^3/uL Neut % (Auto) (35-85) % Lymph % (Auto) (10-55) % [place] % (Auto) (0-16) % Eos % (Auto) (0-5) % Baso % (Auto) (0-3) % Neut # (Auto) (1.80-7.00) 10^3/uL Lymph # (Auto) (1.00-4.80) 10^3/uL Woodson # (Auto) (0.00-0.80) 10^3/uL Eos # (Auto) (0.00-0.45) 10^3/uL Baso # (Auto) 10^3/uL PT (9.7-12.3) SEC INR (0.92-1.18) D-Dimer, Quantitative 0.83 H (0.00-0.50) Sodium (136-145) mEq/L Potassium (3.5-5.0) mEq/L Chloride (98-106) mEq/L Carbon Dioxide (21-32) mmol/L BUN (7-18) mg/dL Creatinine (0.6-1.0) mg/dL Est Cr Clr Drug Dosing mL/min Estimated GFR (MDRD) (>=60) mL/min Glucose (75-99) mg/dL Calcium (8.4-10.1) mg/dL Lactate Dehydrogenase (100-190) U/L Creatine Kinase (21-215) U/L Troponin I (0.00-0.06) ng/mL NT-Pro-B Natriuret Pep (0-1000) pg/mL SARS-CoV-2 RNA (RT-PCR) Negative (NEGATIVE) - Re-Assessments/Exams Free Text/Narrative Re-Assessment/Exam: 11/02/19 [id number] Discussed all results with and patient. advised of the use of a spacer for her inhaler and will likely feel like gets better results with this. Also informed of heart failure testing and further meds and echocardiogram that needs to be done. Will arrange for these appointments to be done next Saturday. Systolic blood pressure is high, will readdress at her visit if does not respond to diuretics. verbalizes understanding. Departure - Departure Time of Disposition: 16:53 Disposition: Home, Self-Care 01 Condition: Fair Clinical Impression: Shortness of breath Acute CHF Qualifiers: Heart failure type: unspecified Qualified Code(s): I50.9 - Heart failure, unspecified - Discharge Information *PRESCRIPTION DRUG MONITORING PROGRAM REVIEWED*: No *COPY OF PRESCRIPTION DRUG MONITORING REPORT IN PATIENT KLARISSA: No Prescriptions: Furosemide [Lasix] 20 mg PO DAILY #30 tab Instructions: Shortness of Breath, Adult, [id number], Heart Failure, Self Care, [id number] Referrals: Grant Puckett MD [Primary Care Provider] - Forms: ED Department Discharge Additional Instructions: 1. Rest 2. Use spacer with inhaler and take as directed when needed 3. Lasix 20 mg daily 4. Echocardiogram (ultrasound of heart will be done On Saturday) followed by an appointment with Dr. Puckett. A staff member from here will call you to coordinate these appointments with you for the October 29. Call Dr. Puckett's office with any questions or concerns. Sepsis Event Note - Evaluation Sepsis Screening Result: No Definite Risk - Focused Exam Vital Signs: Vital Signs Temp Pulse Resp BP Pulse Ox 11/02/19 16:30 98.5 F 56 L 9 L 184/77 H 99 11/02/19 16:15 98.6 F 62 9 L 190/71 H 99 11/02/19 16:00 98 F 61 10 L 193/69 H 98 11/02/19 15:46 98.5 F 70 12 182/76 H 99 Date Exam was Performed: 11/02/19 Time Exam was Performed: 16:57 - My Orders Last 24 Hours: My Active Orders 11/02/19 16:11 Chest 2V [CR] Stat - Assessment/Plan Last 24 Hours: My Active Orders 11/02/19 16:11 Chest 2V [CR] Stat
[2019-11-02 16:31] LABS: CHLORIDE,CL 105 mEq/L (98-106); SODIUM,NA 142 mEq/L (136-145)
[2019-11-02 16:33] VITALS: BP 184/77; PULSE 56
== END 2019-11-02 17:05 | disposition home or self-care (01) ==
LOC: CC.ED 15:36
DX: I11.0 Hypertensive heart disease with heart failure (principal); I50.9 Heart failure, unspecified; J45.909 Unspecified asthma, uncomplicated; F32.9 Major depressive disorder, single episode, unspecified; M19.90 Unspecified osteoarthritis, unspecified site; Z79.82 Long term (current) use of aspirin; Z79.899 Other long term (current) drug therapy; Z88.6 Allergy status to analgesic agent; Z88.8 Allergy status to other drugs, medicaments and biological substances; Z91.012 Allergy to eggs
CPT/HCPCS: 36415; 71046; 80048; 82550; 83615; 83880; 84484; 85025; 85379; 85610; 93005; 93010; 99284; 99285-25; U0002

== ENCOUNTER 2019-12-28 10:41 | Inpatient (IN) | payer MEDICARE, BC ==
[2019-12-28 11:34] LABS: CHLORIDE,CL 106 mEq/L (98-106); SODIUM,NA 144 mEq/L (136-145)
[2019-12-28] MEDS ORDERED: Pantoprazole 40 MG Vial IVPUSH SCH (12:00)
[2019-12-28] MEDS ORDERED: Acetaminophen 325 MG Tab PO PRN (12:05)
[2019-12-28] MEDS ORDERED: Sodium Chloride 0.9% 10 ML Syringe FLUSH PRN (12:05)
[2019-12-28] MEDS ORDERED: Albuterol 8 GM Inhaler INH PRN (12:15)
[2019-12-28] MEDS: Enoxaparin 30 MG/0.3 ML Syringe SUBCUT SCH (13:43)
[2019-12-28] MEDS: Acetaminophen/HYDROcodone 325-5 MG Tab PO PRN ×2 (13:48→21:28)
[2019-12-28] MEDS: D5 1/2 NS w/ 20 mEq/L KCl 1,000 ML IV SCH ×2 (14:27→20:13)
[2019-12-28] MEDS ORDERED: Gabapentin 300 MG Cap PO ONE (15:30)
[2019-12-28] MEDS: amLODIPine 10 MG Tab PO SCH (17:40)
[2019-12-28] MEDS ORDERED: BIMATOPROST EYEBOTH SCH (20:00)
[2019-12-28] MEDS ORDERED: BRINZOLAMIDE EYEBOTH SCH (20:00)
[2019-12-28] MEDS ORDERED: EYE EYEBOTH SCH (20:00)
[2019-12-28] MEDS ORDERED: CYCLOSPORINE EYE EYEBOTH SCH (20:00)
[2019-12-28] MEDS ORDERED: Hydrocortisone 20 MG Tab PO SCH (20:15)
[2019-12-28] MEDS ORDERED: LORazepam 0.5 MG Tab PO PRN (20:15)
[2019-12-28] MEDS: Pantoprazole 40 MG Vial IVPUSH SCH (21:19)
[2019-12-28] MEDS: Gabapentin 300 MG Cap PO SCH (21:20)
[2019-12-29] MEDS: Pantoprazole 40 MG Vial IVPUSH SCH ×2 (07:37→20:05)
[2019-12-29 07:43] LABS: CHLORIDE,CL 106 mEq/L (98-106); SODIUM,NA 142 mEq/L (136-145)
[2019-12-29] MEDS ORDERED: Lactated Ringers 1,000 ML IV SCH (08:00)
[2019-12-29] MEDS ORDERED: AMLODIPINE 5 MG PO SCH (08:00)
[2019-12-29] MEDS ORDERED: Benzocaine 20% Oral Spray 59.2 ML Canister MUCMEM ONE (08:40)
[2019-12-29] MEDS ORDERED: Meperidine PF 25 MG/ML SDV IV ONE (08:43)
[2019-12-29] MEDS ORDERED: Midazolam 1 MG/ML 2 ML SDV IV ONE ×2 (08:43→08:45)
[2019-12-29] MEDS ORDERED: Potassium Chloride Riders 40 MEQ in Premix Bag 1 BAG IV ONE (09:30)
[2019-12-29] MEDS: Sodium Chloride 0.9% 250 ML IV SCH (09:57)
[2019-12-29] MEDS ORDERED: Iron Sucrose Complex 100 MG/5 ML SDV IVPUSH ONE (10:00)
[2019-12-29] MEDS: amLODIPine 10 MG Tab PO SCH (10:03)
[2019-12-29] MEDS: Gabapentin 300 MG Cap PO SCH ×5 (11:21→20:06)
--- NOTE | 2019-12-29 11:53 | OR ---
DATE OF OPERATION: 12/29/2019 PREOPERATIVE DIAGNOSIS: 1. POOR APPETITE. 2. IRON-DEFICIENCY ANEMIA. 3. HISTORY OF PEPTIC ULCER DISEASE STATUS POST PARTIAL GASTRECTOMY. POSTOPERATIVE DIAGNOSIS: 1. POOR APPETITE. 2. IRON-DEFICIENCY ANEMIA. 3. HISTORY OF PEPTIC ULCER DISEASE STATUS POST PARTIAL GASTRECTOMY. SURGEON: Grant Puckett MD PROCEDURE: DIAGNOSTIC EGD WITH BIOPSY X2, THANH. ANESTHESIA: Conscious sedation with continuous O2 sat monitoring and nurse assist. COMPLICATIONS: None. SPECIMEN: 1. Anastomotic biopsy x2. 2. THANH. FINDINGS: 1. Full-length EGD. 2. Status post partial antrectomy. 3. Large food bezoar. 4. Anastomotic inflammation without ulceration or active bleeding. RECOMMENDATIONS: The patient will be placed on a full-liquid diet for now. Aggressive proton pump therapy initiated. We will continue to monitor the patient's progress. INDICATIONS: She was admitted for electrolyte abnormalities and we elected to proceed with diagnostic EGD. DESCRIPTION OF PROCEDURE: The patient was prepped and draped, placed in the left lateral decubitus position. A lubricated Olympus gastroscope was inserted over a bit, advanced to cricopharyngeus area, and with patient swallow easily intubated into the esophagus. The esophageal lining was benign in its entire course. The Z-line was crisp around 37 cm. There was some spontaneous reflux, but no distal esophagitis, stricturing, ulceration, or Ford's changes. The scope was advanced into the stomach which was shortened due to a prior partial antrectomy. There was a large food bolus present. It was very soft and easily broken up. Some of this was able to get down into the small bowel and through the anastomosis. The anastomosis itself does have some inflammatory changes around its anastomotic site, but no active bleeding, erosions, or ulcerations. Did do 2 biopsies of this area and a CLOtest. The rest of the remaining stomach appeared grossly benign. Air was suctioned from the stomach and the scope removed without complication. ELISA/KENN /[id number]
--- NOTE | 2019-12-29 13:10 | PCM.PN ---
- General Info Date of Service: 12/29/19 Admission Dx/Problem (Free Text): Abdominal Pain Subjective Update: Sharmila is an 84 yo female who was admitted to the hospital yesterday under observation status for abdominal pain. Labs did show a low potassium levels and IV replacement therapy was ordered. She underwent EGD today, which did show a large bezoar per Dr. Puckett. Aggressive PPI therapy was started. CT scan of the abdomen/pelvis was ordered as well. She states the pain is subsiding and feels a lot better today. She denies any concerns at this time. - Review of Systems General: Reports: Fatigue. Denies: Fever HEENT: Reports: No Symptoms Pulmonary: Reports: No Symptoms Cardiovascular: Reports: No Symptoms Gastrointestinal: Reports: Abdominal Pain. Denies: Constipation, Diarrhea, Nausea, Vomiting Genitourinary: Reports: Frequency Neurological: Reports: No Symptoms Psychiatric: Reports: No Symptoms - Patient Data Vitals - Most Recent: Last Vital Signs Temp 96.4 F L 12/29/19 11:15 Pulse 64 12/29/19 11:15 Resp 20 12/29/19 11:15 BP 170/63 H 12/29/19 11:15 Pulse Ox 100 12/29/19 11:15 Weight - Most Recent: 87 lb I&O - Last 24 Hours: Intake & Output 12/28/19 12/29/19 12/29/19 22:59 06:59 14:59 Intake Total 433 Balance 433 Lab Results Last 24 Hours: Laboratory Results - last 24 hr 12/28/19 12/28/19 12/29/19 Range/Units 12:19 13:08 05:00 WBC 5.5 (5.0-10.0) 10^3/uL RBC 3.77 L (4.00-5.50) 10^6/uL Hgb 9.4 L (12.0-16.0) g/dL Hct 30.9 L (37.0-47.0) % MCV 82.0 (82.0-94.0) fL MCH 24.9 L (27.0-32.0) pg MCHC 30.4 L (33.0-38.0) g/dL RDW Coeff of Magui 18.7 H (11.0-15.0) % Plt Count 287 (150-400) 10^3/uL Neut % (Auto) 47.5 (35-85) % Lymph % (Auto) 29.7 (10-55) % [place] % (Auto) 13.6 (0-16) % Eos % (Auto) 8.5 H (0-5) % Baso % (Auto) 0.7 (0-3) % Neut # (Auto) 2.62 (1.80-7.00) 10^3/uL Lymph # (Auto) 1.64 (1.00-4.80) 10^3/uL [place] # (Auto) 0.75 (0.00-0.80) 10^3/uL Eos # (Auto) 0.47 H (0.00-0.45) 10^3/uL Baso # (Auto) 0.04 10^3/uL Sodium (136-145) mEq/L Potassium (3.5-5.0) mEq/L Chloride (98-106) mEq/L Carbon Dioxide (21-32) mmol/L BUN (7-18) mg/dL Creatinine (0.6-1.0) mg/dL Est Cr Clr Drug Dosing mL/min Estimated GFR (MDRD) (>=60) mL/min Glucose (75-99) mg/dL Calcium (8.4-10.1) mg/dL Magnesium 2.2 (1.8-2.4) mg/dL Iron 28 L (35-145) ug/dL TIBC 397 (261-478) ug/dL Unsaturated IBC 369 H (155-355) ug/dL Transferrin % Sat 7.1 L (20.0-50.0) % Ferritin 7 L (11-307) ng/mL C-Reactive Protein (0.2-0.8) mg/dL COVID-19 (RASHID) (NEGATIVE) 12/29/19 12/29/19 Range/Units 05:00 06:53 WBC (5.0-10.0) 10^3/uL RBC (4.00-5.50) 10^6/uL Hgb (12.0-16.0) g/dL Hct (37.0-47.0) % MCV (82.0-94.0) fL MCH (27.0-32.0) pg MCHC (33.0-38.0) g/dL RDW Coeff of Magui (11.0-15.0) % Plt Count (150-400) 10^3/uL Neut % (Auto) (35-85) % Lymph % (Auto) (10-55) % [place] % (Auto) (0-16) % Eos % (Auto) (0-5) % Baso % (Auto) (0-3) % Neut # (Auto) (1.80-7.00) 10^3/uL Lymph # (Auto) (1.00-4.80) 10^3/uL [place] # (Auto) (0.00-0.80) 10^3/uL Eos # (Auto) (0.00-0.45) 10^3/uL Baso # (Auto) 10^3/uL Sodium 142 (136-145) mEq/L Potassium 3.0 L (3.5-5.0) mEq/L Chloride 106 (98-106) mEq/L Carbon Dioxide 30 (21-32) mmol/L BUN 9 (7-18) mg/dL Creatinine 0.6 (0.6-1.0) mg/dL Est Cr Clr Drug Dosing 44.26 mL/min Estimated GFR (MDRD) > 60 (>=60) mL/min Glucose 109 H (75-99) mg/dL Calcium 8.1 L (8.4-10.1) mg/dL Magnesium (1.8-2.4) mg/dL Iron (35-145) ug/dL TIBC (261-478) ug/dL Unsaturated IBC (155-355) ug/dL Transferrin % Sat (20.0-50.0) % Ferritin (11-307) ng/mL C-Reactive Protein < 0.2 L (0.2-0.8) mg/dL COVID-19 (RASHID) Negative (NEGATIVE) Jarred Results Last 24 Hours: Microbiology 12/28/19 22:51 Occult Blood - Final Stool / Feces Med Orders - Current: Current Medications Acetaminophen (Tylenol) 650 mg PO Q4H PRN PRN Reason: Pain (Mild 1-3)/fever Hydrocodone Bitart/Acetaminophen ([place] 325-5 Mg) 1 tab PO Q4H PRN PRN Reason: Pain (moderate 4-6) Last Admin: 12/28/19 21:28 Dose: 1 tab Documented by: Albuterol (Ventolin Hfa) 0 gm INH Q4H PRN PRN Reason: Shortness of Breath Amlodipine Besylate (Norvasc) 5 mg PO DAILY [facility] Last Admin: 12/29/19 10:03 Dose: 5 mg Documented by: Buspirone HCl (Buspar) 15 mg PO BID [facility] Enoxaparin Sodium (Lovenox) 30 mg SUBCUT Q24H [facility] Last Admin: 12/28/19 13:43 Dose: 30 mg Documented by: Gabapentin (Neurontin) 600 mg PO TID [facility] Last Admin: 12/29/19 11:21 Dose: Not Given Documented by: Hydrocortisone (Cortef) 5 mg PO BEDTIME [place] Hydrocortisone (Cortef) 10 mg PO DAILY [facility] Sodium Chloride (Normal Saline) 250 mls @ 40 mls/hr IV ASDIRECTED [facility] Last Admin: 12/29/19 09:57 Dose: 40 mls/hr Documented by: Potassium Chloride 40 meq/ (Premix) 100 mls @ 16 mls/hr IV ONETIME ONE Stop: 12/29/19 15:44 Last Admin: 12/29/19 09:57 Dose: 16 mls/hr Documented by: Lisinopril (Prinivil) 20 mg PO DAILY [facility] Loratadine (Claritin) 10 mg PO DAILY [facility] Lorazepam (Ativan) 0.5 mg PO BEDTIME PRN PRN Reason: Sleep Bimatoprost [Lumigan (0.01% Ophth Soln]) 0 drop EYEBOTH BEDTIME [place] Brinzolamide [Azopt 1% Ophth Susp] Eye Drop Pt Own Med 0 drop EYEBOTH BID [place] Cyclosporine [ (Restasis] Eye Drop)) 0 drop EYEBOTH BID [place] Pantoprazole Sodium (Protonix Iv) 40 mg IVPUSH BID [facility] Last Admin: 12/29/19 07:37 Dose: 40 mg Documented by: Simvastatin (Zocor) 10 mg PO QPM [facility] Sodium Chloride (Saline Flush) 10 ml FLUSH ASDIRECTED PRN PRN Reason: Keep Vein Open Discontinued Medications Benzocaine (Hurricaine 20% [place]) 0.5 ml MUCMEM .STK-MED ONE Stop: 12/29/19 08:41 Last Admin: 12/29/19 08:40 Dose: 0.5 ml Documented by: Gabapentin (Neurontin) 600 mg PO ONETIME ONE Stop: 12/28/19 15:31 Last Admin: 12/28/19 16:06 Dose: 600 mg Documented by: Gabapentin (Neurontin) 600 mg PO TID [place] Stop: 12/29/19 08:01 Last Admin: 12/29/19 11:21 Dose: Not Given Documented by: Hydrocortisone (Cortef) 5 mg PO BEDTIME [place] Stop: 12/28/19 20:16 Last Admin: 12/28/19 21:19 Dose: 5 mg Documented by: Potassium Chloride/Dextrose/Sod Cl (D5 1/2 Ns W/ 20 Meq/L Kcl) 1,000 mls @ 75 mls/hr IV ASDIRECTED [facility] Last Admin: 12/28/19 20:13 Dose: 75 mls/hr Documented by: Lactated Ringer's (Ringers, Lactated) 1,000 mls @ 150 mls/hr IV ASDIRECTED [facility] Last Admin: 12/29/19 08:44 Dose: 150 mls/hr Documented by: Iron Sucrose (Venofer) 200 mg IVPUSH ONETIME ONE Stop: 12/29/19 10:01 Last Admin: 12/29/19 09:55 Dose: 200 mg Documented by: Lidocaine HCl (Xylocaine-Mpf 1%) 1 ml .XX ONETIME ONE Stop: 12/29/19 09:46 Last Admin: 12/29/19 10:00 Dose: 1 ml Documented by: Lorazepam (Ativan) 0.5 mg PO BEDTIME PRN PRN Reason: SLEEP Last Admin: 12/28/19 21:21 Dose: 0.5 mg Documented by: Meperidine HCl (Demerol) 25 mg IV .STK-MED ONE Stop: 12/29/19 08:44 Last Admin: 12/29/19 08:43 Dose: 25 mg Documented by: Midazolam HCl (Versed 1 Mg/Ml) 2 mg IV .STK-MED ONE Stop: 12/29/19 08:44 Last Admin: 12/29/19 08:43 Dose: 2 mg Documented by: Midazolam HCl (Versed 1 Mg/Ml) 2 mg IV .STK-MED ONE Stop: 12/29/19 08:46 Last Admin: 12/29/19 08:45 Dose: 2 mg Documented by: Amlodipine [Norvasc] (5 Mg) 0 mg PO DAILY [facility] Pantoprazole Sodium (Protonix Iv) 40 mg IVPUSH Q12H [facility] Last Admin: 12/28/19 13:43 Dose: 40 mg Documented by: - Exam General: Alert, Oriented, Cooperative, No Acute Distress Lungs: Clear to Auscultation, Normal Respiratory Effort Cardiovascular: Regular Rate, Regular Rhythm, Murmurs GI/Abdominal Exam: Normal Bowel Sounds, Soft, No Distention, No Mass, Tender (mild generalized) Extremities: Normal Inspection, No Pedal Edema Skin: Warm, Dry, Intact Neurological: No New Focal Deficit Psy/Mental Status: Alert, Normal Mood Sepsis Event Note - Evaluation Sepsis Screening Result: No Definite Risk - Focused Exam Vital Signs: Vital Signs Temp Pulse Resp BP BP BP Pulse Ox 12/29/19 11:15 96.4 F L 64 20 170/63 H 100 12/29/19 10:13 96.8 F L 65 18 129/54 L 99 12/29/19 10:03 134/47 L 12/29/19 09:45 96.6 F L 56 L 18 134/47 L 100 12/29/19 09:14 97 F 58 L 18 128/56 L 98 12/29/19 08:53 61 20 159/75 H 100 12/29/19 08:48 54 L 20 137/67 100 12/29/19 08:43 55 L 20 206/72 H 100 12/29/19 08:38 59 L 20 182/84 H 99 12/29/19 07:35 96.6 F L 54 L 18 154/56 H 99 12/29/19 03:08 97.2 F 64 18 168/62 H 98 Date Exam was Performed: 12/29/19 Time Exam was Performed: 13:04 - Problem List & Annotations (1) Abdominal pain SNOMED Code(s): 57608122 Code(s): R10.9 - UNSPECIFIED ABDOMINAL PAIN Status: Acute Current Visit: Yes (2) Hypokalemia SNOMED Code(s): 52188534 Code(s): E87.6 - HYPOKALEMIA Status: Acute Current Visit: Yes - Problem List Review Problem List Initiated/Reviewed/Updated: Yes - Plan Plan:: Waiting for CT results. Overall patient has showed improvement today. Will repeat labs in the am. Potassium currently being given intravenously. Dr. Puckett did initiate PPI therapy. Remains afebrile. Will switch to acute status.
[2019-12-29] MEDS ORDERED: Barium Sulfate Oral Susp 450 ML Bottle PO ONE ×2 (13:45→14:30)
[2019-12-29] MEDS ORDERED: Iopamidol 755 Mg/ML 100 ML Bottle IVPUSH ONE ×2 (13:45→14:30)
[2019-12-29] MEDS: busPIRone 5 MG Tab PO SCH ×2 (14:27→20:06)
[2019-12-29] MEDS: Hydrocortisone 20 MG Tab PO SCH ×2 (14:27→20:06)
[2019-12-29] MEDS: Lisinopril 20 MG Tab PO SCH (14:39)
[2019-12-29] MEDS: Enoxaparin 30 MG/0.3 ML Syringe SUBCUT SCH (14:40)
[2019-12-29] MEDS: Loratadine 10 MG Tab PO SCH (14:40)
[2019-12-29] MEDS ORDERED: LORazepam 0.5 MG Tab PO PRN (20:00)
[2019-12-29] MEDS: Simvastatin 10 MG Tab PO SCH (20:06)
[2019-12-29] MEDS: Acetaminophen/HYDROcodone 325-5 MG Tab PO PRN (20:30)
[2019-12-30] MEDS: Lisinopril 20 MG Tab PO SCH (07:39)
[2019-12-30] MEDS: busPIRone 5 MG Tab PO SCH ×2 (07:39→19:39)
[2019-12-30] MEDS: Pantoprazole 40 MG Vial IVPUSH SCH ×2 (07:39→19:40)
[2019-12-30] MEDS: Hydrocortisone 20 MG Tab PO SCH ×2 (07:40→19:39)
[2019-12-30] MEDS: amLODIPine 10 MG Tab PO SCH (07:41)
[2019-12-30 07:42] LABS: CHLORIDE,CL 106 mEq/L (98-106); SODIUM,NA 143 mEq/L (136-145)
[2019-12-30] MEDS: Loratadine 10 MG Tab PO SCH (07:42)
[2019-12-30] MEDS: Gabapentin 300 MG Cap PO SCH ×3 (07:42→19:38)
--- NOTE | 2019-12-30 12:54 | PCM.PN ---
- General Info Date of Service: 12/30/19 Functional Status: Reports: Pain Controlled - Review of Systems General: Reports: No Symptoms HEENT: Reports: No Symptoms Pulmonary: Reports: No Symptoms Cardiovascular: Reports: No Symptoms Gastrointestinal: Denies: Abdominal Pain, Constipation, Decreased Appetite, Diarrhea, Nausea, Vomiting Genitourinary: Reports: No Symptoms Musculoskeletal: Reports: No Symptoms Neurological: Reports: No Symptoms - Patient Data Vitals - Most Recent: Last Vital Signs Temp 97.7 F 12/30/19 12:00 Pulse 77 12/30/19 12:00 Resp 18 12/30/19 12:00 BP 145/55 H 12/30/19 12:00 Pulse Ox 99 12/30/19 12:00 Weight - Most Recent: 87 lb Lab Results Last 24 Hours: Laboratory Results - last 24 hr 12/29/19 12/30/19 12/30/19 Range/Units 14:48 07:00 07:00 WBC 5.8 (5.0-10.0) 10^3/uL RBC 3.84 L (4.00-5.50) 10^6/uL Hgb 9.6 L (12.0-16.0) g/dL Hct 31.2 L (37.0-47.0) % MCV 81.3 L (82.0-94.0) fL MCH 25.0 L (27.0-32.0) pg MCHC 30.8 L (33.0-38.0) g/dL RDW Coeff of Magui 18.7 H (11.0-15.0) % Plt Count 324 (150-400) 10^3/uL Neut % (Auto) 51.3 (35-85) % Lymph % (Auto) 25.0 (10-55) % Andrew % (Auto) 15.3 (0-16) % Eos % (Auto) 7.5 H (0-5) % Baso % (Auto) 0.9 (0-3) % Neut # (Auto) 2.95 (1.80-7.00) 10^3/uL Lymph # (Auto) 1.44 (1.00-4.80) 10^3/uL Andrew # (Auto) 0.88 H (0.00-0.80) 10^3/uL Eos # (Auto) 0.43 (0.00-0.45) 10^3/uL Baso # (Auto) 0.05 10^3/uL Sodium 143 (136-145) mEq/L Potassium 3.2 L (3.5-5.0) mEq/L Chloride 106 (98-106) mEq/L Carbon Dioxide 31 (21-32) mmol/L BUN 6 L (7-18) mg/dL Creatinine 0.6 (0.6-1.0) mg/dL Est Cr Clr Drug Dosing 44.26 mL/min Estimated GFR (MDRD) > 60 (>=60) mL/min Glucose 95 (75-99) mg/dL Calcium 8.4 (8.4-10.1) mg/dL Total Bilirubin 0.3 (0.0-1.0) mg/dL AST 26 (15-37) U/L ALT 26 (12-78) U/L Alkaline Phosphatase 68 (46-116) U/L C-Reactive Protein < 0.2 L (0.2-0.8) mg/dL Total Protein 5.9 L (6.4-8.2) g/dL Albumin 3.0 L (3.4-5.0) g/dL Urine Color Light yellow (YELLOW) Urine Appearance Clear (CLEAR) Urine pH 7.0 (4.5-8.0) Ur Specific [place] 1.020 (1.003-1.020) Urine Protein Negative (NEGATIVE) mg/dL Urine Glucose (UA) Negative (NEGATIVE) mg/dL Urine Ketones Negative (NEGATIVE) mg/dL Urine Occult Blood Trace-intact H (NEGATIVE) Urine Nitrite Negative (NEGATIVE) Urine Bilirubin Negative (NEGATIVE) Urine Urobilinogen 0.2 (0.2-1.0) EU/dL Ur Leukocyte Esterase Negative (NEGATIVE) Urine RBC 0-5 (0-5) /HPF Urine WBC Not seen (0-5) /HPF Ur Epithelial Cells Occasional H (NOT SEEN) /HPF Jarred Results Last 24 Hours: Microbiology 12/28/19 22:51 Occult Blood - Final Stool / Feces Med Orders - Current: Current Medications Acetaminophen (Tylenol) 650 mg PO Q4H PRN PRN Reason: Pain (Mild 1-3)/fever Hydrocodone Bitart/Acetaminophen ([place] 325-5 Mg) 1 tab PO Q4H PRN PRN Reason: Pain (moderate 4-6) Last Admin: 12/29/19 20:30 Dose: 1 tab Documented by: Albuterol (Ventolin Hfa) 0 gm INH Q4H PRN PRN Reason: Shortness of Breath Amlodipine Besylate (Norvasc) 5 mg PO DAILY [facility] Last Admin: 12/30/19 07:41 Dose: 5 mg Documented by: Buspirone HCl (Buspar) 15 mg PO BID [facility] Last Admin: 12/30/19 07:39 Dose: 15 mg Documented by: Enoxaparin Sodium (Lovenox) 30 mg SUBCUT Q24H [facility] Last Admin: 12/29/19 14:40 Dose: 30 mg Documented by: Gabapentin (Neurontin) 600 mg PO TID [facility] Last Admin: 12/30/19 07:42 Dose: 600 mg Documented by: Hydrocortisone (Cortef) 5 mg PO BEDTIME [facility] Last Admin: 12/29/19 20:06 Dose: 5 mg Documented by: Hydrocortisone (Cortef) 10 mg PO DAILY [facility] Last Admin: 12/30/19 07:40 Dose: 10 mg Documented by: Sodium Chloride (Normal Saline) 250 mls @ 40 mls/hr IV ASDIRECTED [facility] Last Admin: 12/29/19 09:57 Dose: 40 mls/hr Documented by: Lisinopril (Prinivil) 20 mg PO DAILY [facility] Last Admin: 12/30/19 07:39 Dose: 20 mg Documented by: Loratadine (Claritin) 10 mg PO DAILY [facility] Last Admin: 12/30/19 07:42 Dose: 10 mg Documented by: Lorazepam (Ativan) 0.5 mg PO BEDTIME PRN PRN Reason: Sleep Last Admin: 12/29/19 20:31 Dose: 0.5 mg Documented by: Bimatoprost [Lumigan (0.01% Ophth Soln]) 0 drop EYEBOTH BEDTIME [facility] Brinzolamide [Azopt 1% Ophth Susp] Eye Drop Pt Own Med 0 drop EYEBOTH BID [facility] Cyclosporine [ (Restasis] Eye Drop)) 0 drop EYEBOTH BID [facility] Pantoprazole Sodium (Protonix Iv) 40 mg IVPUSH BID [facility] Last Admin: 12/30/19 07:39 Dose: 40 mg Documented by: Simvastatin (Zocor) 10 mg PO QPM [facility] Last Admin: 12/29/19 20:06 Dose: 10 mg Documented by: Sodium Chloride (Saline Flush) 10 ml FLUSH ASDIRECTED PRN PRN Reason: Keep Vein Open Discontinued Medications Barium Sulfate (Readi-Cat 2) 900 ml PO ONETIME ONE Stop: 12/29/19 13:46 Last Admin: 12/29/19 14:31 Dose: 900 ml Documented by: Benzocaine (Hurricaine 20% Susan) 0.5 ml MUCMEM .STK-MED ONE Stop: 12/29/19 08:41 Last Admin: 12/29/19 08:40 Dose: 0.5 ml Documented by: Gabapentin (Neurontin) 600 mg PO ONETIME ONE Stop: 12/28/19 15:31 Last Admin: 12/28/19 16:06 Dose: 600 mg Documented by: Gabapentin (Neurontin) 600 mg PO TID [facility] Stop: 12/29/19 08:01 Last Admin: 12/29/19 11:21 Dose: Not Given Documented by: Hydrocortisone (Cortef) 5 mg PO BEDTIME [facility] Stop: 12/28/19 20:16 Last Admin: 12/28/19 21:19 Dose: 5 mg Documented by: Potassium Chloride/Dextrose/Sod Cl (D5 1/2 Ns W/ 20 Meq/L Kcl) 1,000 mls @ 75 mls/hr IV ASDIRECTED [facility] Last Admin: 12/28/19 20:13 Dose: 75 mls/hr Documented by: Lactated Ringer's (Ringers, Lactated) 1,000 mls @ 150 mls/hr IV ASDIRECTED [facility] Last Admin: 12/29/19 08:44 Dose: 150 mls/hr Documented by: Potassium Chloride 40 meq/ (Premix) 100 mls @ 16 mls/hr IV ONETIME ONE Stop: 12/29/19 15:44 Last Admin: 12/29/19 09:57 Dose: 16 mls/hr Documented by: Iopamidol (Isovue-370 (76%)) 100 ml IVPUSH ONETIME ONE Stop: 12/29/19 13:46 Last Admin: 12/29/19 14:31 Dose: 100 ml Documented by: Iron Sucrose (Venofer) 200 mg IVPUSH ONETIME ONE Stop: 12/29/19 10:01 Last Admin: 12/29/19 09:55 Dose: 200 mg Documented by: Lidocaine HCl (Xylocaine-Mpf 1%) 1 ml .XX ONETIME ONE Stop: 12/29/19 09:46 Last Admin: 12/29/19 10:00 Dose: 1 ml Documented by: Lorazepam (Ativan) 0.5 mg PO BEDTIME PRN PRN Reason: SLEEP Last Admin: 12/28/19 21:21 Dose: 0.5 mg Documented by: Meperidine HCl (Demerol) 25 mg IV .STK-MED ONE Stop: 12/29/19 08:44 Last Admin: 12/29/19 08:43 Dose: 25 mg Documented by: Midazolam HCl (Versed 1 Mg/Ml) 2 mg IV .STK-MED ONE Stop: 12/29/19 08:44 Last Admin: 12/29/19 08:43 Dose: 2 mg Documented by: Midazolam HCl (Versed 1 Mg/Ml) 2 mg IV .STK-MED ONE Stop: 12/29/19 08:46 Last Admin: 12/29/19 08:45 Dose: 2 mg Documented by: Amlodipine [Norvasc] (5 Mg) 0 mg PO DAILY [facility] Last Admin: 12/29/19 17:00 Dose: Not Given Documented by: Pantoprazole Sodium (Protonix Iv) 40 mg IVPUSH Q12H [facility] Last Admin: 12/28/19 13:43 Dose: 40 mg Documented by: - Exam General: Alert, Oriented Lungs: Clear to Auscultation, Normal Respiratory Effort Cardiovascular: Regular Rate, Regular Rhythm, Murmurs GI/Abdominal Exam: Normal Bowel Sounds, Soft, Non-Tender, No Organomegaly, No Distention, No Abnormal Bruit Extremities: Normal Inspection, No Pedal Edema Skin: Warm, Dry, Intact Psy/Mental Status: Alert, Normal Affect, Normal Mood Sepsis Event Note - Evaluation Sepsis Screening Result: No Definite Risk - Focused Exam Vital Signs: Vital Signs Temp Pulse Resp BP BP BP Pulse Ox 12/30/19 12:00 97.7 F 77 18 145/55 H 99 12/30/19 07:41 182/41 H 12/30/19 07:39 182/41 H 12/30/19 06:58 98 F 57 L 18 182/41 H 99 12/30/19 04:00 97.9 F 75 18 121/60 98 Date Exam was Performed: 12/30/19 Time Exam was Performed: 12:49 - Problem List & Annotations (1) Abdominal pain SNOMED Code(s): 81006820 Code(s): R10.9 - UNSPECIFIED ABDOMINAL PAIN Status: Acute Current Visit: Yes Qualifiers: Abdominal location: epigastric Qualified Code(s): R10.13 - Epigastric pain (2) Hypokalemia SNOMED Code(s): 98634512 Code(s): E87.6 - HYPOKALEMIA Status: Acute Current Visit: Yes (3) Gastric bezoar SNOMED Code(s): 343228186, 898764990 Code(s): T18.2XXA - FOREIGN BODY IN STOMACH, INITIAL ENCOUNTER Status: Acute Current Visit: Yes Qualifiers: Encounter type: initial encounter Qualified Code(s): T18.2XXA - Foreign body in stomach, initial encounter - Problem List Review Problem List Initiated/Reviewed/Updated: Yes - My Orders Last 24 Hours: My Active Orders 12/30/19 08:46 Communication Order [RC] DAILY - Plan Plan:: Waiting for CT results. Overall patient has showed improvement today. Will repeat labs in the am. Potassium currently being given intravenously. Dr. Puckett did initiate PPI therapy. Remains afebrile. Will switch to acute status. Sharmila continues to show improvement. Denies any current symptoms or abdominal pain. Will start carbonated beverage 4 oz four times a day and Ensure with meals. Discussed likely discharge tomorrow if tolerating diet well and corrected potassium. Will continue with potassium correction with another 40mEq today. Patient verbalized understanding.
[2019-12-30] MEDS ORDERED: Loperamide 2 MG Cap PO PRN (13:18)
[2019-12-30] MEDS ORDERED: Potassium Chloride Riders 40 MEQ in Premix Bag 1 BAG IV ONE (13:30)
[2019-12-30] MEDS: Enoxaparin 30 MG/0.3 ML Syringe SUBCUT SCH (13:36)
[2019-12-30] MEDS: Sodium Chloride 0.9% 250 ML IV SCH (13:43)
[2019-12-30] MEDS: Simvastatin 10 MG Tab PO SCH (19:38)
[2019-12-30] MEDS: Acetaminophen/HYDROcodone 325-5 MG Tab PO PRN (19:40)
[2019-12-30] MEDS ORDERED: Calcium Carbonate 500 MG Tab.Chew PO PRN (19:53)
[2019-12-31] MEDS: Hydrocortisone 20 MG Tab PO SCH (07:34)
[2019-12-31] MEDS: Lisinopril 20 MG Tab PO SCH (07:34)
[2019-12-31] MEDS: amLODIPine 10 MG Tab PO SCH (07:35)
[2019-12-31] MEDS: busPIRone 5 MG Tab PO SCH (07:35)
[2019-12-31] MEDS: Gabapentin 300 MG Cap PO SCH (07:36)
[2019-12-31] MEDS: Pantoprazole 40 MG Vial IVPUSH SCH (07:36)
[2019-12-31] MEDS: Loratadine 10 MG Tab PO SCH (07:36)
[2019-12-31 07:37] VITALS: BP 137/56
[2019-12-31] MEDS: Acetaminophen/HYDROcodone 325-5 MG Tab PO PRN (08:00)
[2019-12-31 11:10] VITALS: PULSE 64
--- NOTE | 2019-12-31 15:01 | DISCH ---
DISCHARGE DIAGNOSIS: 1. GASTRIC BEZOAR. 2. HYPOKALEMIA. 3. ABDOMINAL PAIN, RESOLVED. DISPOSITION: Discharged home. COURSE WHILE IN HOSPITAL: The patient was admitted on the secondary to some abdominal pain in bilateral lower quadrants. Dr. Puckett is the primary provider, who did admit Sharmila for further evaluation and treatment. She underwent the EGD by Dr. Max Puckett on the 12/28 that did show gastric bezoar, which she did try to break up particles. She did have hypokalemia as well, was given IV potassium while in the hospital. She did gradually improve each day. Did feel that she is ready for discharge today. Did not have any further complications or concerns or discomfort at this time. LABORATORY WORK: On admission, hemoglobin was 9.6, which is chronic with a history of known iron deficiency, did stay stable at 9.4 and 9.6 during her stay. White blood count within normal limits during her stay. Potassium on admission was 2.9, 3.2, did elevate up to 3.2 on the 12/29. CRP was within normal limits. Iron studies were done. The patient is getting Venofer. A urinalysis was negative. COVID was negative. INTERVENTION: EGD by Dr. Puckett on the 12/28 did show a large food particle, gastric bezoar. DISCHARGE INSTRUCTIONS: The patient will be discharged to home with all home medications. We will resume the Protonix 40 mg daily and potassium chloride 10 mEq daily. I did follow up with pharmacy in regard to her medications with concerns that she has been taking all of her medications. They will start doing foil packs for her per Dr. Puckett's recommendation. Again, she is to be starting on Protonix 40 mg daily. I do recommend that she does take 4 ounces of a carbonated beverage 4 times a day and make sure she is taking Ensure with her meals as well. FOLLOWUP INSTRUCTIONS: The patient will have a followup appoint with Dr. Grant Puckett next week on . HEATHER/KENN /[id number] SHELLY
== END 2019-12-31 11:20 | disposition home or self-care (01) | DRG 394 ==
LOC: CC.FCMC 10:41 → CC.MS 10:50 → UNDOADMOB 11:52 → CC.MS 12:05 → OBSVTOIN 12-29 10:50
PROVIDERS: ADMIT Family Medicine; ATTEND Family Medicine
PROC: 0DB68ZX Excision of Stomach, Via Natural or Artificial Opening Endoscopic, Diagnostic (ICD-10-PCS; principal; 2019-12-29)
DX: T18.2XXA Foreign body in stomach, initial encounter (principal); R10.31 Right lower quadrant pain; R10.32 Left lower quadrant pain; E27.1 Primary adrenocortical insufficiency; E87.6 Hypokalemia; J45.909 Unspecified asthma, uncomplicated; Z87.19 Personal history of other diseases of the digestive system; Z87.11 Personal history of peptic ulcer disease; Z90.3 Acquired absence of stomach [part of]; Z11.59 Encounter for screening for other viral diseases; I10 Essential (primary) hypertension; E78.5 Hyperlipidemia, unspecified; Z20.828 Contact with and (suspected) exposure to other viral communicable diseases; M54.5 Low back pain; G89.29 Other chronic pain; E53.8 Deficiency of other specified B group vitamins; M06.9 Rheumatoid arthritis, unspecified; K21.9 Gastro-esophageal reflux disease without esophagitis; E03.9 Hypothyroidism, unspecified; M81.0 Age-related osteoporosis without current pathological fracture; M19.90 Unspecified osteoarthritis, unspecified site; D50.9 Iron deficiency anemia, unspecified; K29.50 Unspecified chronic gastritis without bleeding; Z88.6 Allergy status to analgesic agent; Z88.8 Allergy status to other drugs, medicaments and biological substances; Z79.899 Other long term (current) drug therapy; Z85.038 Personal history of other malignant neoplasm of large intestine
CPT/HCPCS: 36415; 74019; 74177; 80048; 80053; 81001; 82150; 82270; 82728; 83540; 83550; 83735; 85025; 86140; 87081; 88305; 88342; 89055; 93005; 93010; 96365; 96366; 96372; 96375; 96376; 99220; A9270-GY; C9113; G0378; J1650; J1756; J2001; J2175; J2250; J3480; J7050; J7120; Q9967; U0002

== ENCOUNTER 2020-05-25 14:49 | Inpatient (IN) | payer MEDICARE, BC ==
[2020-05-25] MEDS ORDERED: Sodium Chloride 0.9% 10 ML Syringe FLUSH PRN (15:46)
[2020-05-25 16:40] LABS: CHLORIDE,CL 105 mEq/L (98-106); SODIUM,NA 143 mEq/L (136-145)
[2020-05-25] MEDS: Acetaminophen/HYDROcodone 325-5 MG Tab PO PRN (18:08)
[2020-05-25] MEDS: Hydrocortisone 20 MG Tab PO SCH (19:50)
[2020-05-25] MEDS: busPIRone 5 MG Tab PO SCH (19:50)
[2020-05-25] MEDS: Gabapentin 300 MG Cap PO SCH (19:50)
[2020-05-25] MEDS: Enoxaparin 40 MG/0.4 ML Syringe SUBCUT SCH (19:51)
[2020-05-25] MEDS: fentaNYL 100 MCG/2 ML SDV IVPUSH SCH (20:00)
[2020-05-26] MEDS: Acetaminophen/HYDROcodone 325-5 MG Tab PO PRN ×4 (00:12→21:46)
[2020-05-26] MEDS: fentaNYL 100 MCG/2 ML SDV IVPUSH SCH ×2 (07:34→19:54)
[2020-05-26] MEDS: Hydrocortisone 20 MG Tab PO SCH ×2 (07:35→19:55)
[2020-05-26] MEDS: Calcium Carbonate/Vitamin D3 1250 MG-200 Unit Tab PO SCH (07:35)
[2020-05-26] MEDS: Pantoprazole 40 MG Tab.CR PO SCH (07:36)
[2020-05-26] MEDS: busPIRone 5 MG Tab PO SCH ×2 (07:36→19:56)
[2020-05-26] MEDS: Gabapentin 300 MG Cap PO SCH ×2 (07:36→19:56)
[2020-05-26] MEDS: Enoxaparin 40 MG/0.4 ML Syringe SUBCUT SCH (19:56)
--- NOTE | 2020-05-26 22:11 | PCM.PN ---
- General Info Date of Service: 05/26/20 Admission Dx/Problem (Free Text): Left Superior Ramus Fracture Subjective Update: Sharmila is an 84 yo female who fell at home yesterday. Was seen in clinic and found to have a left superior ramus fracture. Sharmila states her pain has improved with IV fentanyl as long as she isn't moving. Patient is able to ambulate with assistance and needs assistance with getting in and out of hospital bed. Denies any new complaints today. Functional Status: Reports: Tolerating Diet. Denies: New Symptoms Pain Score: 5 - Review of Systems General: Reports: No Symptoms HEENT: Reports: No Symptoms Pulmonary: Reports: No Symptoms Cardiovascular: Reports: No Symptoms Gastrointestinal: Reports: No Symptoms Genitourinary: Reports: No Symptoms Musculoskeletal: Reports: Leg Pain, Other (Left buttocks) - Patient Data Vitals - Most Recent: Last Vital Signs Temp 99.7 F 05/26/20 20:00 Pulse 78 05/26/20 21:46 Resp 18 05/26/20 20:00 BP 136/59 L 05/26/20 20:00 Pulse Ox 92 L 05/26/20 21:46 Weight - Most Recent: 91 lb 3.2 oz Med Orders - Current: Current Medications Hydrocodone Bitart/Acetaminophen ([place] 325-5 Mg) 1 tab PO Q6H PRN PRN Reason: Pain Last Admin: 05/26/20 21:46 Dose: 1 tab Documented by: Buspirone HCl (Buspar) 15 mg PO BID [facility] Last Admin: 05/26/20 19:56 Dose: 15 mg Documented by: Calcium Carbonate (Calcium Carbonate/Vitamin D 1250 Mg-200 Unit) 1 tab PO DAILY [facility] Last Admin: 05/26/20 07:35 Dose: 1 tab Documented by: Enoxaparin Sodium (Lovenox) 40 mg SUBCUT Q24H [facility] Last Admin: 05/26/20 19:56 Dose: 40 mg Documented by: Fentanyl (Sublimaze) 12.5 mcg IVPUSH Q12H [facility] Last Admin: 05/26/20 19:54 Dose: 12.5 mcg Documented by: Gabapentin (Neurontin) 300 mg PO BID [facility] Last Admin: 05/26/20 19:56 Dose: 300 mg Documented by: Hydrocortisone (Cortef) 5 mg PO BEDTIME [facility] Last Admin: 05/26/20 19:55 Dose: 5 mg Documented by: Hydrocortisone (Cortef) 10 mg PO DAILY [facility] Last Admin: 05/26/20 07:35 Dose: 10 mg Documented by: Lorazepam (Ativan) 0.5 mg PO BEDTIME PRN PRN Reason: Sleep Pantoprazole Sodium (Protonix) 40 mg PO DAILY [facility] Last Admin: 05/26/20 07:36 Dose: 40 mg Documented by: Sodium Chloride (Saline Flush) 10 ml FLUSH ASDIRECTED PRN PRN Reason: Keep Vein Open - Exam General: Alert, Cooperative, No Acute Distress Lungs: Clear to Auscultation, Normal Respiratory Effort Cardiovascular: Regular Rate, Regular Rhythm, Murmurs GI/Abdominal Exam: Normal Bowel Sounds, Soft, Non-Tender Extremities: No Pedal Edema, Normal Capillary Refill, Leg Pain Skin: Warm, Dry, Ecchymosis (left buttocks, no hematoma noted.) Neurological: No New Focal Deficit Psy/Mental Status: Alert, Normal Mood Sepsis Event Note - Evaluation Sepsis Screening Result: No Definite Risk - Focused Exam Vital Signs: Vital Signs Temp Pulse Resp BP Pulse Ox 05/26/20 21:46 78 92 L 05/26/20 20:00 99.7 F 81 18 136/59 L 91 L 05/26/20 15:59 99.1 F 81 18 134/56 L 91 L 05/26/20 11:51 99.4 F 71 18 120/54 L 97 - Problem List & Annotations (1) Fracture of superior ramus of left pubis SNOMED Code(s): 979934118 Code(s): S32.512A - FRACTURE OF SUPERIOR RIM OF LEFT PUBIS, INIT FOR CLOS FX Status: Acute Current Visit: Yes - Problem List Review Problem List Initiated/Reviewed/Updated: Yes - Assessment Assessment:: Left superior ramus fracture - Plan Plan:: Continue pain control. Transition to oral pain medications from IV as tolerated. PT to work with patient for strengthening and ambulation. Patient has no new concerns today.
[2020-05-26] MEDS: LORazepam 0.5 MG Tab PO PRN (23:31)
[2020-05-27] MEDS: Acetaminophen/HYDROcodone 325-5 MG Tab PO PRN ×2 (05:01→11:14)
[2020-05-27] MEDS: fentaNYL 100 MCG/2 ML SDV IVPUSH SCH ×2 (07:41→20:08)
[2020-05-27] MEDS: busPIRone 5 MG Tab PO SCH ×2 (07:43→20:10)
[2020-05-27] MEDS: Calcium Carbonate/Vitamin D3 1250 MG-200 Unit Tab PO SCH (07:44)
[2020-05-27] MEDS: Pantoprazole 40 MG Tab.CR PO SCH (07:44)
[2020-05-27] MEDS: Gabapentin 300 MG Cap PO SCH ×2 (07:44→20:10)
[2020-05-27] MEDS: Hydrocortisone 20 MG Tab PO SCH ×2 (07:44→20:10)
[2020-05-27] MEDS: Albuterol 8 GM Inhaler INH PRN ×2 (07:45→13:53)
--- NOTE | 2020-05-27 11:14 | PCM.PN ---
- General Info Date of Service: 05/27/20 Admission Dx/Problem (Free Text): Left Superior Ramus Fracture Functional Status: Reports: Tolerating Diet, Ambulating. Denies: Pain Controlled - Review of Systems General: Reports: Weakness, Fatigue, Malaise HEENT: Denies: Ear Pain, Headaches, Sinus Congestion, Rhinitis Pulmonary: Denies: Shortness of Breath, Cough Cardiovascular: Denies: Chest Pain, Edema, Lightheadedness Gastrointestinal: Denies: Abdominal Pain, Nausea, Vomiting Genitourinary: Reports: No Symptoms Musculoskeletal: Reports: Back Pain, Leg Pain, Joint Pain Skin: Reports: No Symptoms Neurological: Reports: Weakness - Patient Data Vitals - Most Recent: Last Vital Signs Temp 98.3 F 05/27/20 07:48 Pulse 72 05/27/20 07:48 Resp 18 05/27/20 07:48 BP 143/65 H 05/27/20 07:48 Pulse Ox 94 L 05/27/20 07:48 Weight - Most Recent: 91 lb 3.2 oz Med Orders - Current: Current Medications Hydrocodone Bitart/Acetaminophen ([place] 325-5 Mg) 1 tab PO Q6H PRN PRN Reason: Pain Last Admin: 05/27/20 05:01 Dose: 1 tab Documented by: Albuterol (Ventolin Hfa) 0 gm INH Q4H PRN PRN Reason: Dyspnea Last Admin: 05/27/20 07:45 Dose: 2 puff Documented by: Buspirone HCl (Buspar) 15 mg PO BID [facility] Last Admin: 05/27/20 07:43 Dose: 15 mg Documented by: Calcium Carbonate (Calcium Carbonate/Vitamin D 1250 Mg-200 Unit) 1 tab PO DAILY [facility] Last Admin: 05/27/20 07:44 Dose: 1 tab Documented by: Enoxaparin Sodium (Lovenox) 40 mg SUBCUT Q24H [facility] Last Admin: 05/26/20 19:56 Dose: 40 mg Documented by: Fentanyl (Sublimaze) 12.5 mcg IVPUSH Q12H [facility] Last Admin: 05/27/20 07:41 Dose: 12.5 mcg Documented by: Gabapentin (Neurontin) 300 mg PO BID [facility] Last Admin: 05/27/20 07:44 Dose: 300 mg Documented by: Hydrocortisone (Cortef) 5 mg PO BEDTIME [facility] Last Admin: 05/26/20 19:55 Dose: 5 mg Documented by: Hydrocortisone (Cortef) 10 mg PO DAILY [facility] Last Admin: 05/27/20 07:44 Dose: 10 mg Documented by: Lorazepam (Ativan) 0.5 mg PO BEDTIME PRN PRN Reason: Sleep Last Admin: 05/26/20 23:31 Dose: 0.5 mg Documented by: Pantoprazole Sodium (Protonix) 40 mg PO DAILY [facility] Last Admin: 05/27/20 07:44 Dose: 40 mg Documented by: Sodium Chloride (Saline Flush) 10 ml FLUSH ASDIRECTED PRN PRN Reason: Keep Vein Open - Exam General: Alert, Oriented HEENT: Mucous Membr. Moist/[place] Neck: Supple Lungs: Clear to Auscultation, Normal Respiratory Effort Cardiovascular: Regular Rate, Regular Rhythm, Murmurs GI/Abdominal Exam: Normal Bowel Sounds, Soft, Non-Tender Extremities: Limited Range of Motion, Other (joint pain, increased pain with weight bearing) Skin: Warm, Dry Neurological: No New Focal Deficit Sepsis Event Note - Evaluation Sepsis Screening Result: No Definite Risk - Focused Exam Vital Signs: Vital Signs Temp Pulse Resp BP Pulse Ox 05/27/20 07:48 98.3 F 72 18 143/65 H 94 L 05/27/20 04:00 98.5 F 78 18 163/72 H 93 L 05/26/20 23:29 99.7 F 79 18 151/59 H 93 L - Problem List & Annotations (1) Fracture of superior ramus of left pubis SNOMED Code(s): 822589443 Code(s): S32.512A - FRACTURE OF SUPERIOR RIM OF LEFT PUBIS, INIT FOR CLOS FX Status: Acute Priority: High Current Visit: Yes Qualifiers: Encounter type: initial encounter Fracture type: closed Qualified Code(s): S32.512A - Fracture of superior rim of left pubis, initial encounter for closed fracture - Problem List Review Problem List Initiated/Reviewed/Updated: Yes - My Orders Last 24 Hours: My Active Orders 05/27/20 07:07 Albuterol [Ventolin HFA] See Dose Instructions INH Q4H PRN 05/27/20 09:47 UA W/JASMIN RFLX IF INDICATED [URIN] Routine - Assessment Assessment:: Left superior ramus fracture - Plan Plan:: Continue pain control. Transition to oral pain medications from IV as tolerated. PT to work with patient for strengthening and ambulation. Patient has no new concerns today. 05-27-2020 Patient resting comfortably in the chair. States still has pain while sitting but worsens when ambulating. Nurse notes that she fatigues easily with ambulation. Is allowed toe touch with walker. Was started back on her inhaler due to complaints of shortness of breath at times. Has refused to use her oxygen to this point. director of patient financial services to evaluate discharge potential. Continue PT.
[2020-05-27] MEDS: Enoxaparin 40 MG/0.4 ML Syringe SUBCUT SCH (20:10)
[2020-05-27] MEDS: LORazepam 0.5 MG Tab PO PRN (22:13)
[2020-05-28] MEDS: Acetaminophen/HYDROcodone 325-5 MG Tab PO PRN (00:08)
[2020-05-28] MEDS: Albuterol 8 GM Inhaler INH PRN (01:21)
[2020-05-28] MEDS: Pantoprazole 40 MG Tab.CR PO SCH (07:29)
[2020-05-28] MEDS: busPIRone 5 MG Tab PO SCH (07:30)
[2020-05-28] MEDS: Hydrocortisone 20 MG Tab PO SCH (07:30)
[2020-05-28] MEDS: Calcium Carbonate/Vitamin D3 1250 MG-200 Unit Tab PO SCH (07:30)
[2020-05-28] MEDS: Gabapentin 300 MG Cap PO SCH (07:30)
[2020-05-28] MEDS: fentaNYL 100 MCG/2 ML SDV IVPUSH SCH (07:31)
[2020-05-28 07:53] VITALS: BP 169/77; PULSE 75
--- NOTE | 2020-05-28 12:34 | PCM.DCSUM1 ---
Discharge Summary - Hospital Course Free Text/Narrative:: Sharmila is an 84 year old female who presented to clinic after a fall at home. Had tripped and fell, assisted her up from the floor. Complained of left knee and hip pain, not able to bear weight as well. Xrays done and did show superior ramus pelvic fracture. Family unable to care for patient at home. Admitted for pain control and PT. Diagnosis: Stroke: No Modified Anders Scale: No Symptoms at All Modified [place] Scale Score: 0 - Discharge Data Discharge Date: 05/28/20 Discharge Disposition: DC/Tfer W/I Hosp To [place] [address] Condition: Good - Referral to Home Health Primary Care Physician: TOD Dockery - Discharge Diagnosis/Problem(s) (1) Fracture of superior ramus of left pubis SNOMED Code(s): 014230020 ICD Code: S32.512A - FRACTURE OF SUPERIOR RIM OF LEFT PUBIS, INIT FOR CLOS FX Status: Acute Priority: High Qualifiers: Encounter type: initial encounter Fracture type: closed Qualified Code(s): S32.512A - Fracture of superior rim of left pubis, initial encounter for closed fracture - Patient Summary/Data Complications: none Consults: Consultations 05/25/20 15:46 PT Evaluation and Treatment [CONS] Routine 05/27/20 11:15 Consult to Case Management/Business Development Officer [CONS] Routine Hospital Course: Patient is doing fairly well. Is ambulating with partial weight bearing with walker. Does still complain of frequent issues with pain but does have chronic pain and utilizes hydrocodone. Has been getting IV Fentanyl every 12 hours but will transition to oral pain meds. Does have complaints at times of shortness of breath, utilizes her inhaler at times. Has not required oxygen. Appetite has been fair. billing services manager did discuss home health versus senior living. is not all sure yet if he is able to continue to take care of her at home. Will transfer to swing bed and continue PT. - Patient Instructions Diet: Usual Diet as Tolerated Activity: As Tolerated - Discharge Plan Home Medications: Home Meds LORazepam [Ativan] 0.5 mg PO BEDTIME PRN 05/01/13 [History] busPIRone HCl [Buspirone HCl] 15 mg PO BID 05/01/13 [History] Hydrocortisone 10 mg PO DAILY 11/18/15 [History] Gabapentin [Neurontin] 300 mg PO BID 08/22/18 [History] Hydrocortisone [Cortef] 5 mg PO BEDTIME 08/22/18 [History] Calcium Carb/Vitamin D3/Vit K1 [Viactiv 650 mg-12.5 Mcg Chew] 1 tab PO DAILY 03/23/19 [History] Pantoprazole Sodium [Protonix] 40 mg PO DAILY #30 tablet. 12/31/19 [Rx] Hydrocodone/Acetaminophen [Hydrocodone-Acetamin 5-325 mg] 1 each PO Q6H PRN 02/09/20 [History] Albuterol [Ventolin HFA] 2 puff INH Q4HR PRN 05/27/20 [History] - Discharge Summary/Plan Comment DC Time >30 min.: Yes - General Info Date of Service: 05/28/20 Admission Dx/Problem (Free Text: Left Superior Ramus Fracture Functional Status: Reports: Tolerating Diet, Ambulating, Urinating. Denies: Pain Controlled - Review of Systems General: Reports: Weakness, Fatigue, Malaise HEENT: Reports: No Symptoms Pulmonary: Reports: Shortness of Breath. Denies: Cough Cardiovascular: Denies: Chest Pain, Edema, Lightheadedness Gastrointestinal: Denies: Abdominal Pain, Nausea, Vomiting Genitourinary: Reports: No Symptoms Musculoskeletal: Reports: Joint Pain Skin: Reports: No Symptoms Neurological: Reports: No Symptoms - Patient Data Vitals - Most Recent: Last Vital Signs Temp 98.4 F 05/28/20 07:52 Pulse 75 05/28/20 07:52 Resp 18 05/28/20 07:52 BP 169/77 H 05/28/20 07:52 Pulse Ox 94 L 05/28/20 07:52 Weight - Most Recent: 91 lb 3.2 oz Med Orders - Current: Current Medications Discontinued Medications Hydrocodone Bitart/Acetaminophen ([place] 325-5 Mg) 1 tab PO Q6H PRN PRN Reason: Pain Last Admin: 05/28/20 00:08 Dose: 1 tab Documented by: Albuterol (Ventolin Hfa) 0 gm INH Q4H PRN PRN Reason: Dyspnea Last Admin: 05/28/20 01:21 Dose: 2 puff Documented by: Buspirone HCl (Buspar) 15 mg PO BID [facility] Last Admin: 05/28/20 07:30 Dose: 15 mg Documented by: Calcium Carbonate (Calcium Carbonate/Vitamin D 1250 Mg-200 Unit) 1 tab PO DAILY [facility] Last Admin: 05/28/20 07:30 Dose: 1 tab Documented by: Enoxaparin Sodium (Lovenox) 40 mg SUBCUT Q24H [facility] Last Admin: 05/27/20 20:10 Dose: 40 mg Documented by: Fentanyl (Sublimaze) 12.5 mcg IVPUSH Q12H [facility] Last Admin: 05/28/20 07:31 Dose: 12.5 mcg Documented by: Gabapentin (Neurontin) 300 mg PO BID [facility] Last Admin: 05/28/20 07:30 Dose: 300 mg Documented by: Hydrocortisone (Cortef) 5 mg PO BEDTIME [facility] Last Admin: 05/27/20 20:10 Dose: 5 mg Documented by: Hydrocortisone (Cortef) 10 mg PO DAILY [facility] Last Admin: 05/28/20 07:30 Dose: 10 mg Documented by: Lorazepam (Ativan) 0.5 mg PO BEDTIME PRN PRN Reason: Sleep Last Admin: 05/27/20 22:13 Dose: 0.5 mg Documented by: Pantoprazole Sodium (Protonix) 40 mg PO DAILY [facility] Last Admin: 05/28/20 07:29 Dose: 40 mg Documented by: Sodium Chloride (Saline Flush) 10 ml FLUSH ASDIRECTED PRN PRN Reason: Keep Vein Open - Exam General: Reports: Alert, Oriented HEENT: Reports: Mucous Membr. Moist/[place] Neck: Reports: Supple Lungs: Reports: Clear to Auscultation, Normal Respiratory Effort Cardiovascular: Reports: Regular Rate, Regular Rhythm, Murmurs GI/Abdominal Exam: Normal Bowel Sounds, Soft, Non-Tender Extremities: Other (pain to left hip/pelvis with palpation) Skin: Reports: Warm, Dry Neurological: Reports: No New Focal Deficit
== END 2020-05-28 11:43 | disposition swing bed (61) | DRG 536 ==
LOC: CC.FCMC 14:49 → UNDOADMIN 15:43 → CC.MS 15:43 → UNDODISIN 05-28 11:13
PROVIDERS: ADMIT Physician Assistant Medical; ATTEND Family Medicine
DX: S32.512A Fracture of superior rim of left pubis, initial encounter for closed fracture (principal); W19.XXXA Unspecified fall, initial encounter; Y92.009 Unspecified place in unspecified non-institutional (private) residence as the place of occurrence of the external cause; Z88.6 Allergy status to analgesic agent; Z79.899 Other long term (current) drug therapy; Z88.1 Allergy status to other antibiotic agents; Z20.822 Contact with and (suspected) exposure to COVID-19; S32.592A Other specified fracture of left pubis, initial encounter for closed fracture; W18.30XA Fall on same level, unspecified, initial encounter; Z20.828 Contact with and (suspected) exposure to other viral communicable diseases
CPT/HCPCS: 72170; 73560; U0002; 36415; 80048; 81001; 85025; 86140; 94640; 97161-GP; 97530-GP; A9270-GY; J1650; J3010

== ENCOUNTER 2020-05-28 11:42 | Inpatient (IN) | payer MEDICARE, BC ==
[2020-05-28] MEDS ORDERED: Sodium Chloride 0.9% 10 ML Syringe FLUSH PRN ×2 (12:22)
[2020-05-28] MEDS ORDERED: Acetaminophen/HYDROcodone 325-5 MG Tab PO PRN (12:22)
[2020-05-28] MEDS: Acetaminophen/HYDROcodone 325-5 MG Tab PO PRN ×3 (12:44→22:07)
[2020-05-28] MEDS: Albuterol 8 GM Inhaler INH PRN (15:27)
[2020-05-28] MEDS: Gabapentin 300 MG Cap PO SCH (19:40)
[2020-05-28] MEDS: Enoxaparin 40 MG/0.4 ML Syringe SUBCUT SCH (19:40)
[2020-05-28] MEDS: Hydrocortisone 20 MG Tab PO SCH (19:40)
[2020-05-28] MEDS: busPIRone 5 MG Tab PO SCH (19:41)
[2020-05-28] MEDS ORDERED: fentaNYL 100 MCG/2 ML SDV IVPUSH SCH (20:00)
[2020-05-29] MEDS: LORazepam 0.5 MG Tab PO PRN ×2 (01:26→22:31)
[2020-05-29] MEDS: Acetaminophen/HYDROcodone 325-5 MG Tab PO PRN ×4 (04:20→19:11)
[2020-05-29] MEDS: Pantoprazole 40 MG Tab.CR PO SCH (06:57)
[2020-05-29] MEDS: fentaNYL 100 MCG/2 ML SDV IVPUSH PRN ×2 (07:09→21:14)
[2020-05-29] MEDS: Hydrocortisone 20 MG Tab PO SCH ×2 (07:30→19:11)
[2020-05-29] MEDS: Gabapentin 300 MG Cap PO SCH ×2 (07:30→19:11)
[2020-05-29] MEDS: Calcium Carbonate/Vitamin D3 1250 MG-200 Unit Tab PO SCH (07:31)
[2020-05-29] MEDS: busPIRone 5 MG Tab PO SCH ×2 (07:31→19:11)
[2020-05-29] MEDS: Enoxaparin 40 MG/0.4 ML Syringe SUBCUT SCH (19:11)
[2020-05-30] MEDS: Acetaminophen/HYDROcodone 325-5 MG Tab PO PRN ×5 (00:13→20:29)
[2020-05-30] MEDS: Albuterol 8 GM Inhaler INH PRN (04:29)
[2020-05-30] MEDS: Pantoprazole 40 MG Tab.CR PO SCH (06:30)
[2020-05-30] MEDS: busPIRone 5 MG Tab PO SCH ×2 (07:29→19:12)
[2020-05-30] MEDS: Hydrocortisone 20 MG Tab PO SCH ×2 (07:37→19:12)
[2020-05-30] MEDS: Calcium Carbonate/Vitamin D3 1250 MG-200 Unit Tab PO SCH (07:37)
[2020-05-30] MEDS: Gabapentin 300 MG Cap PO SCH ×2 (07:38→19:12)
--- NOTE | 2020-05-30 10:05 | PCM.PN ---
- General Info Date of Service: 05/30/20 Admission Dx/Problem (Free Text): Left Superior Ramus Fracture Subjective Update: Sharmila is an 84yo female who is currently in swing bed secondary to left superior ramus fracture. Pain is controlled with sitting; however, with any movement pain does intensify. She has been getting IV Fentanyl daily with taking hydrocodone. She states she otherwise is feeling well. Son is present today and questioning when his mother is able to go home. Sharmila states she would like to go home as her is present as well. - Review of Systems General: Reports: Weakness. Denies: Fever HEENT: Reports: No Symptoms Pulmonary: Reports: No Symptoms Cardiovascular: Reports: No Symptoms Gastrointestinal: Reports: No Symptoms Genitourinary: Reports: No Symptoms Musculoskeletal: Reports: Back Pain, Other (left pelvic/posterior buttocks pain) Neurological: Reports: No Symptoms - Patient Data Vitals - Most Recent: Last Vital Signs Temp 98.4 F 05/30/20 07:53 Pulse 75 05/30/20 07:53 Resp 18 05/30/20 07:53 BP 164/71 H 05/30/20 07:53 Pulse Ox 94 L 05/30/20 07:53 Weight - Most Recent: 91 lb Med Orders - Current: Current Medications Hydrocodone Bitart/Acetaminophen ([place] 325-5 Mg) 1 tab PO Q4H PRN PRN Reason: Pain Last Admin: 05/30/20 08:39 Dose: 1 tab Documented by: Albuterol (Ventolin Hfa) 0 gm INH Q4H PRN PRN Reason: Dyspnea Last Admin: 05/30/20 04:29 Dose: 2 puff Documented by: Buspirone HCl (Buspar) 15 mg PO BID [facility] Last Admin: 05/30/20 07:29 Dose: 15 mg Documented by: Calcium Carbonate (Calcium Carbonate/Vitamin D 1250 Mg-200 Unit) 1 tab PO DAILY [facility] Last Admin: 05/30/20 07:37 Dose: 1 tab Documented by: Enoxaparin Sodium (Lovenox) 40 mg SUBCUT Q24H [facility] Last Admin: 05/29/20 19:11 Dose: 40 mg Documented by: Fentanyl (Sublimaze) 12.5 mcg IVPUSH Q12H PRN PRN Reason: Pain Last Admin: 05/29/20 21:14 Dose: 12.5 mcg Documented by: Gabapentin (Neurontin) 300 mg PO BID [facility] Last Admin: 05/30/20 07:38 Dose: 300 mg Documented by: Hydrocortisone (Cortef) 5 mg PO BEDTIME [facility] Last Admin: 05/29/20 19:11 Dose: 5 mg Documented by: Hydrocortisone (Cortef) 10 mg PO DAILY [facility] Last Admin: 05/30/20 07:37 Dose: 10 mg Documented by: Lorazepam (Ativan) 0.5 mg PO BEDTIME PRN PRN Reason: Sleep Last Admin: 05/29/20 22:31 Dose: 0.5 mg Documented by: Pantoprazole Sodium (Protonix) 40 mg PO ACBRK [facility] Last Admin: 05/30/20 06:30 Dose: 40 mg Documented by: Sodium Chloride (Saline Flush) 10 ml FLUSH ASDIRECTED PRN PRN Reason: Keep Vein Open Sodium Chloride (Saline Flush) 10 ml FLUSH ASDIRECTED PRN PRN Reason: Keep Vein Open Discontinued Medications Hydrocodone Bitart/Acetaminophen ([place] 325-5 Mg) 1 tab PO Q6H PRN PRN Reason: Pain Fentanyl (Sublimaze) 12.5 mcg IVPUSH Q12H [facility] - Exam General: Alert, Oriented, Cooperative Lungs: Clear to Auscultation, Normal Respiratory Effort Cardiovascular: Regular Rate, Regular Rhythm, Murmurs GI/Abdominal Exam: Normal Bowel Sounds, Soft, Non-Tender, No Organomegaly, No Distention Extremities: Normal Inspection, No Pedal Edema Skin: Warm, Dry, Intact Psy/Mental Status: Alert, Normal Affect, Normal Mood Sepsis Event Note - Evaluation Sepsis Screening Result: No Definite Risk - Focused Exam Vital Signs: Vital Signs Temp Pulse Resp BP Pulse Ox 05/30/20 07:53 98.4 F 75 18 164/71 H 94 L - Problem List & Annotations (1) Fracture of superior ramus of left pubis SNOMED Code(s): 634685787 Code(s): S32.512A - FRACTURE OF SUPERIOR RIM OF LEFT PUBIS, INIT FOR CLOS FX Status: Acute Priority: High Current Visit: No Qualifiers: - Problem List Review Problem List Initiated/Reviewed/Updated: Yes - Assessment Assessment:: Left Superior Ramus Fracture - Plan Plan:: Total time of 25 minutes was majority spent in face to face consultation with Sharmila and her son. Discussed transitioning to home care. I am concerned as she is unable to ambulate on her own and get up from a seated position d/t the discomfort. Discussed long holiday weekend and would like physical therapy to work with Sharmila today. Discussed pain control and until Sharmila is able to be on just oral pain medications I do not feel it is appropriate to send home at this time. Discussed trip hazards at home, rugs, etc... which Son does admit has been removed. Will reevaluate after physical therapy.
[2020-05-30] MEDS: Enoxaparin 40 MG/0.4 ML Syringe SUBCUT SCH (19:12)
[2020-05-31] MEDS: Acetaminophen/HYDROcodone 325-5 MG Tab PO PRN ×6 (00:48→22:41)
[2020-05-31] MEDS: Pantoprazole 40 MG Tab.CR PO SCH (06:06)
[2020-05-31] MEDS: Gabapentin 300 MG Cap PO SCH ×2 (07:21→19:48)
[2020-05-31] MEDS: Hydrocortisone 20 MG Tab PO SCH ×2 (07:21→19:48)
[2020-05-31] MEDS: busPIRone 5 MG Tab PO SCH ×2 (07:21→19:47)
[2020-05-31] MEDS: Calcium Carbonate/Vitamin D3 1250 MG-200 Unit Tab PO SCH (07:22)
[2020-05-31] MEDS: Enoxaparin 40 MG/0.4 ML Syringe SUBCUT SCH (19:47)
[2020-06-01] MEDS: Acetaminophen/HYDROcodone 325-5 MG Tab PO PRN ×5 (03:23→23:13)
[2020-06-01] MEDS: Pantoprazole 40 MG Tab.CR PO SCH (06:07)
[2020-06-01] MEDS: busPIRone 5 MG Tab PO SCH ×2 (07:30→19:31)
[2020-06-01] MEDS: Gabapentin 300 MG Cap PO SCH ×2 (07:31→19:31)
[2020-06-01] MEDS: Calcium Carbonate/Vitamin D3 1250 MG-200 Unit Tab PO SCH (07:31)
[2020-06-01] MEDS: Hydrocortisone 20 MG Tab PO SCH ×2 (07:31→19:32)
[2020-06-01] MEDS: Calcium Carbonate 500 MG Tab.Chew PO PRN (09:34)
[2020-06-01] MEDS: fentaNYL 100 MCG/2 ML SDV IVPUSH PRN (14:44)
[2020-06-01] MEDS: Enoxaparin 40 MG/0.4 ML Syringe SUBCUT SCH (19:32)
[2020-06-02] MEDS: Acetaminophen/HYDROcodone 325-5 MG Tab PO PRN ×5 (03:41→21:32)
[2020-06-02] MEDS: Pantoprazole 40 MG Tab.CR PO SCH (06:08)
[2020-06-02] MEDS: busPIRone 5 MG Tab PO SCH ×2 (07:40→19:32)
[2020-06-02] MEDS: Hydrocortisone 20 MG Tab PO SCH ×2 (07:40→19:33)
[2020-06-02] MEDS: Gabapentin 300 MG Cap PO SCH ×2 (07:41→19:32)
[2020-06-02] MEDS: Calcium Carbonate/Vitamin D3 1250 MG-200 Unit Tab PO SCH (07:41)
[2020-06-02] MEDS: Enoxaparin 40 MG/0.4 ML Syringe SUBCUT SCH (19:33)
[2020-06-02] MEDS: LORazepam 0.5 MG Tab PO PRN (20:17)
[2020-06-03] MEDS: Acetaminophen/HYDROcodone 325-5 MG Tab PO PRN ×4 (01:35→17:15)
[2020-06-03] MEDS: Pantoprazole 40 MG Tab.CR PO SCH (06:53)
[2020-06-03] MEDS: Hydrocortisone 20 MG Tab PO SCH ×2 (07:52→19:34)
[2020-06-03] MEDS: Calcium Carbonate/Vitamin D3 1250 MG-200 Unit Tab PO SCH (07:52)
[2020-06-03] MEDS: busPIRone 5 MG Tab PO SCH ×2 (07:53→19:33)
[2020-06-03] MEDS: Gabapentin 300 MG Cap PO SCH ×2 (07:54→19:33)
[2020-06-03] MEDS: Enoxaparin 40 MG/0.4 ML Syringe SUBCUT SCH (19:34)
[2020-06-04] MEDS: Acetaminophen/HYDROcodone 325-5 MG Tab PO PRN ×4 (00:35→18:55)
[2020-06-04] MEDS: Hydrocortisone 20 MG Tab PO SCH ×2 (07:32→19:21)
[2020-06-04] MEDS: Pantoprazole 40 MG Tab.CR PO SCH (07:32)
[2020-06-04] MEDS: Gabapentin 300 MG Cap PO SCH ×2 (07:32→19:21)
[2020-06-04] MEDS: Calcium Carbonate/Vitamin D3 1250 MG-200 Unit Tab PO SCH (07:32)
[2020-06-04] MEDS: busPIRone 5 MG Tab PO SCH ×2 (07:33→19:21)
[2020-06-04] MEDS: Enoxaparin 40 MG/0.4 ML Syringe SUBCUT SCH (19:21)
[2020-06-05] MEDS: Acetaminophen/HYDROcodone 325-5 MG Tab PO PRN ×5 (00:38→22:25)
[2020-06-05] MEDS: Hydrocortisone 20 MG Tab PO SCH ×2 (07:26→19:16)
[2020-06-05] MEDS: busPIRone 5 MG Tab PO SCH ×2 (07:29→19:15)
[2020-06-05] MEDS: Pantoprazole 40 MG Tab.CR PO SCH (07:29)
[2020-06-05] MEDS: Gabapentin 300 MG Cap PO SCH ×2 (07:29→19:15)
[2020-06-05] MEDS: Calcium Carbonate/Vitamin D3 1250 MG-200 Unit Tab PO SCH (07:29)
[2020-06-05] MEDS: Enoxaparin 40 MG/0.4 ML Syringe SUBCUT SCH (19:16)
[2020-06-06] MEDS: Pantoprazole 40 MG Tab.CR PO SCH (06:57)
[2020-06-06] MEDS: Calcium Carbonate/Vitamin D3 1250 MG-200 Unit Tab PO SCH (07:29)
[2020-06-06] MEDS: busPIRone 5 MG Tab PO SCH ×2 (07:29→19:10)
[2020-06-06] MEDS: Acetaminophen/HYDROcodone 325-5 MG Tab PO PRN ×3 (07:29→19:10)
[2020-06-06] MEDS: Gabapentin 300 MG Cap PO SCH ×2 (07:29→19:09)
[2020-06-06] MEDS: Hydrocortisone 20 MG Tab PO SCH ×2 (07:29→19:09)
[2020-06-06] MEDS: Calcium Carbonate 500 MG Tab.Chew PO PRN (13:54)
[2020-06-06] MEDS: Enoxaparin 40 MG/0.4 ML Syringe SUBCUT SCH (19:09)
[2020-06-07] MEDS: Acetaminophen/HYDROcodone 325-5 MG Tab PO PRN ×5 (02:48→23:12)
[2020-06-07] MEDS: Pantoprazole 40 MG Tab.CR PO SCH (06:23)
[2020-06-07] MEDS: Gabapentin 300 MG Cap PO SCH ×2 (07:30→19:29)
[2020-06-07] MEDS: Hydrocortisone 20 MG Tab PO SCH ×2 (07:30→19:28)
[2020-06-07] MEDS: Calcium Carbonate/Vitamin D3 1250 MG-200 Unit Tab PO SCH (07:30)
[2020-06-07] MEDS: busPIRone 5 MG Tab PO SCH ×2 (07:31→19:28)
[2020-06-07] MEDS ORDERED: amLODIPine 2.5 MG Tab PO SCH (12:00)
[2020-06-07] MEDS ORDERED: amLODIPine 2.5 MG Tab PO ONE (16:45)
[2020-06-07] MEDS: Enoxaparin 40 MG/0.4 ML Syringe SUBCUT SCH (19:27)
[2020-06-08] MEDS: Pantoprazole 40 MG Tab.CR PO SCH (06:11)
[2020-06-08] MEDS: Acetaminophen/HYDROcodone 325-5 MG Tab PO PRN ×3 (07:59→17:31)
[2020-06-08] MEDS: busPIRone 5 MG Tab PO SCH ×2 (07:59→19:26)
[2020-06-08] MEDS: Gabapentin 300 MG Cap PO SCH ×2 (07:59→19:27)
[2020-06-08] MEDS: amLODIPine 10 MG Tab PO SCH (07:59)
[2020-06-08] MEDS: Calcium Carbonate/Vitamin D3 1250 MG-200 Unit Tab PO SCH (07:59)
[2020-06-08] MEDS: Hydrocortisone 20 MG Tab PO SCH ×2 (08:00→19:26)
[2020-06-08] MEDS: Calcium Carbonate 500 MG Tab.Chew PO PRN (14:49)
[2020-06-08] MEDS: Enoxaparin 40 MG/0.4 ML Syringe SUBCUT SCH (19:27)
[2020-06-09] MEDS: Acetaminophen/HYDROcodone 325-5 MG Tab PO PRN ×2 (00:52→07:44)
[2020-06-09] MEDS: Pantoprazole 40 MG Tab.CR PO SCH (07:12)
[2020-06-09 07:43] VITALS: BP 185/83; PULSE 100
[2020-06-09] MEDS: busPIRone 5 MG Tab PO SCH (07:44)
[2020-06-09] MEDS: Gabapentin 300 MG Cap PO SCH (07:45)
[2020-06-09] MEDS: Calcium Carbonate/Vitamin D3 1250 MG-200 Unit Tab PO SCH (07:45)
[2020-06-09] MEDS: Hydrocortisone 20 MG Tab PO SCH (07:45)
[2020-06-09] MEDS: amLODIPine 10 MG Tab PO SCH (07:46)
--- NOTE | 2020-06-09 23:05 | PCM.DCSUM1 ---
Discharge Summary - Hospital Course Free Text/Narrative:: Sharmila is an 84 yo female who was initially admitted on the 25 of May after sustaining a fall. Patient had broke the left superior ramus. Patient was admitted to swing bed admission for pain control and ambulation/strengthening via PT. - Discharge Data Discharge Date: 06/09/20 Discharge Disposition: Home, W Home Health Agency 06 Condition: Fair - Referral to Home Health Date of Face to Face Encounter: 06/09/20 Reason for Homebound Status: Inability to drive due to weakness, pelvic fracture Primary Care Physician: PCP None Skilled Need: Physical therapy for strengthening. Occupational therapy for ADL's. - Discharge Diagnosis/Problem(s) (1) Fracture of superior ramus of left pubis SNOMED Code(s): 254700630 ICD Code: S32.512A - FRACTURE OF SUPERIOR RIM OF LEFT PUBIS, INIT FOR CLOS FX Status: Acute Priority: High Qualifiers: Encounter type: initial encounter Fracture type: closed Qualified Code(s): S32.512A - Fracture of superior rim of left pubis, initial encounter for closed fracture - Patient Summary/Data Consults: Consultations 05/28/20 12:22 Consult to Case Management/Verification Specialist [CONS] Routine PT Evaluation and Treatment [CONS] Routine - Patient Instructions Diet: Usual Diet as Tolerated Activity: Full Weight Bearing Activity, Other: Ambulate with walker - Discharge Plan Prescriptions/Med Rec: amLODIPine Besylate [Norvasc] 10 mg PO DAILY #30 tablet Home Medications: Home Meds LORazepam [Ativan] 0.5 mg PO BEDTIME PRN 05/01/13 [History] busPIRone HCl [Buspirone HCl] 15 mg PO BID 05/01/13 [History] Hydrocortisone 10 mg PO DAILY 11/18/15 [History] Gabapentin [Neurontin] 300 mg PO BID 08/22/18 [History] Hydrocortisone [Cortef] 5 mg PO BEDTIME 08/22/18 [History] Calcium Carb/Vitamin D3/Vit K1 [Viactiv 650 mg-12.5 Mcg Chew] 1 tab PO DAILY 03/23/19 [History] Pantoprazole Sodium [Protonix] 40 mg PO DAILY #30 tablet. 12/31/19 [Rx] Hydrocodone/Acetaminophen [Hydrocodone-Acetamin 5-325 mg] 1 each PO Q6H PRN 02/09/20 [History] Albuterol [Ventolin HFA] 2 puff INH Q4HR PRN 05/27/20 [History] amLODIPine Besylate [Norvasc] 10 mg PO DAILY #30 tablet 06/09/20 [Rx] Referrals: Grant Puckett MD [ED Physician] - (2 weeks) - Discharge Summary/Plan Comment DC Time >30 min.: Yes Discharge Summary/Plan Comment: Sharmila has shown significant improvement and strength during her time in swing bed care. Patient will be discharge home with home health. Will continue physical therapy for strengthening. Patient has strong family support and presence. Will have her follow up with primary provider in 2 weeks. Will continue with home pain medication. - General Info Date of Service: 06/09/20 Admission Dx/Problem (Free Text: Left Superior Ramus Fracture - Review of Systems General: Reports: No Symptoms HEENT: Reports: No Symptoms Pulmonary: Reports: No Symptoms Cardiovascular: Reports: No Symptoms Gastrointestinal: Reports: No Symptoms Genitourinary: Reports: No Symptoms Musculoskeletal: Reports: Other (continued left hip pain but improving) Skin: Reports: No Symptoms - Patient Data Vitals - Most Recent: Last Vital Signs Temp 96.3 F L 06/09/20 07:43 Pulse 100 06/09/20 07:43 Resp 20 06/09/20 07:43 BP 185/83 H 06/09/20 07:46 Pulse Ox 94 L 06/09/20 07:43 Weight - Most Recent: 91 lb 9.6 oz Med Orders - Current: Current Medications Discontinued Medications Hydrocodone Bitart/Acetaminophen ([place] 325-5 Mg) 1 tab PO Q6H PRN PRN Reason: Pain Hydrocodone Bitart/Acetaminophen ([place] 325-5 Mg) 1 tab PO Q4H PRN PRN Reason: Pain Last Admin: 06/09/20 07:44 Dose: 1 tab Documented by: Albuterol (Ventolin Hfa) 0 gm INH Q4H PRN PRN Reason: Dyspnea Last Admin: 05/30/20 04:29 Dose: 2 puff Documented by: Amlodipine Besylate (Norvasc) 5 mg PO DAILY [facility] Last Admin: 06/07/20 12:12 Dose: 5 mg Documented by: Amlodipine Besylate (Norvasc) 5 mg PO ONETIME ONE Stop: 06/07/20 16:46 Last Admin: 06/07/20 16:52 Dose: 5 mg Documented by: Amlodipine Besylate (Norvasc) 10 mg PO DAILY [facility] Last Admin: 06/09/20 07:46 Dose: 10 mg Documented by: Buspirone HCl (Buspar) 15 mg PO BID [facility] Last Admin: 06/09/20 07:44 Dose: 15 mg Documented by: Calcium Carbonate (Calcium Carbonate/Vitamin D 1250 Mg-200 Unit) 1 tab PO DAILY [facility] Last Admin: 06/09/20 07:45 Dose: 1 tab Documented by: Calcium Carbonate/Glycine (Tums) 500 mg PO QID PRN PRN Reason: Dyspepsia Last Admin: 06/08/20 14:49 Dose: 500 mg Documented by: Enoxaparin Sodium (Lovenox) 40 mg SUBCUT Q24H [facility] Last Admin: 06/08/20 19:27 Dose: 40 mg Documented by: Fentanyl (Sublimaze) 12.5 mcg IVPUSH Q12H [facility] Fentanyl (Sublimaze) 12.5 mcg IVPUSH Q12H PRN PRN Reason: Pain Last Admin: 06/01/20 14:44 Dose: 12.5 mcg Documented by: Gabapentin (Neurontin) 300 mg PO BID [facility] Last Admin: 06/09/20 07:45 Dose: 300 mg Documented by: Hydrocortisone (Cortef) 5 mg PO BEDTIME [facility] Last Admin: 06/08/20 19:26 Dose: 5 mg Documented by: Hydrocortisone (Cortef) 10 mg PO DAILY [facility] Last Admin: 06/09/20 07:45 Dose: 10 mg Documented by: Lorazepam (Ativan) 0.5 mg PO BEDTIME PRN PRN Reason: Sleep Last Admin: 06/02/20 20:17 Dose: 0.5 mg Documented by: Pantoprazole Sodium (Protonix) 40 mg PO ACBRK [facility] Last Admin: 06/09/20 07:12 Dose: 40 mg Documented by: Sodium Chloride (Saline Flush) 10 ml FLUSH ASDIRECTED PRN PRN Reason: Keep Vein Open Sodium Chloride (Saline Flush) 10 ml FLUSH ASDIRECTED PRN PRN Reason: Keep Vein Open - Exam General: Reports: Alert, Oriented, Cooperative, No Acute Distress Cardiovascular: Reports: Regular Rate, Regular Rhythm GI/Abdominal Exam: Normal Bowel Sounds, Soft, Non-Tender, No Distention, Pelvis Stable Skin: Reports: Warm, Dry, Intact Neurological: Reports: No New Focal Deficit Psy/Mental Status: Reports: Alert, Normal Affect, Normal Mood
== END 2020-06-09 13:35 | disposition home health service (06) | DRG 561 ==
LOC: CC.MS 11:42 → UNDOADMIN 11:58
PROVIDERS: ADMIT Physician Assistant Medical; ATTEND Physician Assistant Medical
DX: S32.512D Fracture of superior rim of left pubis, subsequent encounter for fracture with routine healing (principal); Z79.899 Other long term (current) drug therapy
CPT/HCPCS: 97110-GP; 97530-GP; A9270-GY; J1650; J3010